=== PATIENT | female | born 1935 | race African-American/Black ===

== ENCOUNTER 2017-04-30 17:14 | Observation (INO) ==
[2017-04-30 17:59] LABS: Basophils # 0.1 10*3/uL (0.0-0.2); Basophils % 0.5 % (0.0-0.8); Eosinophils # 0.1 10*3/uL (0.0-0.87); Hematocrit 33.6 VOL% (35.7-47.0); Hemoglobin 12.1 GM/DL (12.0-16.0); Immature Granulocytes % 0.6 %; Immature Granulocytes Absolute 0.08 #; Lymphocytes # 1.4 10*3/uL (1.4-4.0); Lymphocytes % 10.1 % (21.3-54.2); Mean Corpuscular Hemoglobin 28 PG (27-34); Mean Corpuscular Volume 76.4 FL (87-102); Mean Platelet Volume 10.7 FL (9.6-12.0); Monocytes # 0.9 10*3/uL (0.11-0.8); Monocytes % 6.8 % (1.7-12.7); Neutrophils # 10.9 10*3/uL (1.4-7.4); Platelet Count 346 T/CUMM (130-400); Red Cell Distribution Width 14.1 % (9.3-17.3); White Blood Count 13.5 T/CUMM (4-12)
--- NOTE | 2017-04-30 18:07 | EKG Report ---
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
--- NOTE | 2017-04-30 18:48 | XRay Report ---
XR chest 2V Indication: Chest pain Comparison: 18 September 2012 Findings: The heart and mediastinum are normal in size and configuration. The pulmonary vascularity is normal in caliber. No lung infiltrates, effusions, pneumothorax or other abnormality is demonstrated. Impression: Normal chest x-ray PROCEDURE INTERPRETED AT [facility] DEPARTMENT OF RADIOLOGY Final Report Signed by: Dr. Emilio Govea
[2017-04-30 18:49] LABS: Blood Urea Nitrogen 35 MG/DL (7-18); Calcium 8.9 MG/DL (8.5-10.1); Glucose 111 MG/DL (74-106); Magnesium 2.3 MG/DL (1.8-2.4); Osmolality,Calculated 281.8 MOS/KG (273-304); Potassium 4.5 MMOL/L (3.5-5.1); Sodium 137 MMOL/L (136-145); Troponin I Only < 0.015 NG/ML (0.00-0.045)
--- NOTE | 2017-04-30 19:36 | Emergency Department Note ---
Jaswinder Reyna Rolonda, am scribing for, and in the presence of, Oracio Smith M.D. 18:23. Sarah Reyna Howard T, M.D., personally performed the services described in this documentation, ascribed by Irina San in my presence, and it is both accurate and complete [id number] . Arrival - Arrival Chief Complaint: Chest Pain Stated Complaint: chest flutter; esophageal spasms ED Nursing Triage Note: Misty reports a onset of chest fluttering with shortness of breath, weakness, and dizziness; she reports a history of esophageal spasms; and was last dilitated two years ago. Mode of Arrival: Stretcher Limitations: No Limitations Source: Patient, Old Records Reviewed, RN Notes Reviewed Time Seen by Provider: 04/30/17 17:36 - History of Present Illness HPI Narrative: Pt is an 81 y/o female who presents to the ED via EMS with c/o left sided chest pain with an onset of hours ago. Pt has a PMHx of HTN, DM, and Esophageal Dilation. Pt has a PSHx of Cardiac Catherization x5 years ago. She states that she believes that her chest pain is a result of having an esophageal spasms as she normally does. Pt states that she was home when she "started feeling weird. " Pt stated that she did not take NTG tablet because she did not think she was having a heart attack. She states that she began to "feel tired" and felt as if her "jaws locked up." She confirms associated sxs of light headedness, hot, and fatigue but denies vomiting and abdomen pain. Pt stated that she had no pain during time of exam. No other complaint/pain in ED. Onset (ago): hour(s) Consistency: constant Severity: moderate Severity scale (1-10): 5 Quality: other Home Medications: Home Medications Medication Instructions Recorded Confirmed Type Albuterol Sulfate [Proair HFA] 2 puff INH Q4H PRN 04/30/17 04/30/17 History Aspirin EC Tab 81 mg PO QPM 04/30/17 04/30/17 History Cyclobenzaprine [Flexeril] 10 mg PO TID 04/30/17 04/30/17 History Cyproheptadine Tab [Periactin Tab] 4 mg PO BID 04/30/17 04/30/17 History Esomeprazole Magnesium 20 mg PO DAILY 04/30/17 04/30/17 History [Esomeprazole] Fluticasone/Salmeterol 100-50 2 puff INH DAILY 04/30/17 04/30/17 History [Advair 100-50] Furosemide Tab [Lasix Tab] 40 mg PO DAILY PRN 04/30/17 04/30/17 History Insulin Detemir [Levemir FlexPen] 15 units SUBCUT BEDTIME 04/30/17 04/30/17 History Levocetirizine Dihydrochloride 5 mg PO QPM 04/30/17 04/30/17 History Lisinopril [Lisinopril] 10 mg PO DAILY 04/30/17 04/30/17 History Magnesium 250 mg PO QAM 04/30/17 04/30/17 History NIFEdipine [Nifedipine ER] 30 mg PO DAILY 04/30/17 04/30/17 History Nitroglycerin Sl Tab [Nitrostat] 0.4 mg SL Q5M PRN 04/30/17 04/30/17 History Potassium Chloride [Klor-Con M10] 10 meq PO DAILY 04/30/17 04/30/17 History Sitagliptin Phos/Metformin HCl 1 tablet PO BID 04/30/17 04/30/17 History [Janumet 50-500 mg Tablet] Tiotropium Inhalation [Spiriva 1 puff INH DAILY 04/30/17 04/30/17 History Handihaler] Tramadol HCl [Tramadol Tab] 50 mg PO Q6H PRN 04/30/17 04/30/17 History Travoprost 0.004% Oph Soln 1 drop BOTH EYES BEDTIME 04/30/17 04/30/17 History [Travatan Z] Triamterene/Hydrochlorothiazid 1 tablet PO DAILY 04/30/17 04/30/17 History [Triamterene-Hctz 37.5-25 mg Tb] glipiZIDE [Glucotrol] 10 mg PO AC BREAKFAST 04/30/17 04/30/17 History Review of System - Review of System 12 point system: reviewed and no additional remarkable complaints except as stated - Review of System Constitutional: Absent: chills (left side), fever Eyes: Absent: discharge, redness Head/Ears/Nose/Throat: Absent: earache, epistaxis Respiratory: Absent: cough Cardiovascular: Present: chest pain Gastrointestinal: Absent: abdominal pain, nausea, vomiting, diarrhea Genitourinary female: Absent: dysuria Musculoskeletal: Absent: arm pain, back pain, leg pain, neck pain Skin: Absent: rash Neurological: Present: vertigo. Absent: headache, confusion Psychiatric: Absent: anxiety, depression Endocrine: Present: fatigue Medical,Surgical,& Family Hx - Medical History Cardio: History of: Hypertension Psychological: History of: Anxiety Disorders, Depression Endocrine: History of: Diabetes Mellitus (NIDDM) Rheumatology: History of;: Fibromyalgia, Gout, Rheumatoid Arthritis Respiratory: History of: COPD Gastrointestinal: History of: GERD, GI Problems (esophageal spasms with dilitation) - Surgical History Cardiac Surgeries: Sugical HX of: Cardiac Catheterization Reproductive Surgeries: Surgical HX of;: Hysterectomy Orthopedic Surgeries: Comment Only: Total Knee Replacement (left arthroscopic surgery) - Family History Family History: Reports;: Family Cancer (sister-melanoma; father-prosate CA; maternal GM stomach cancer), Family Diabetes (sister and brother) - Social History Smoking Status: Never smoker Frequency of Alcohol Use: None Type of Drug Use: None Exam Vital Signs: Vital Signs Temperature 98.5 F 04/30/17 17:15 Pulse Rate 75 04/30/17 18:30 Respiratory Rate 16 04/30/17 18:30 Blood Pressure 113/79 04/30/17 18:30 O2 Sat by Pulse Oximetry 97 04/30/17 18:30 - General General appearance: alert, in no apparent distress - Head Head exam: Present: atraumatic, normocephalic - Eye Eye exam: Present: PERRL, EOMI - ENT ENT exam: Present: mucous membranes moist. Absent: mucous membranes dry - Neck Neck exam: Present: full ROM. Absent: tenderness - Chest Chest inspection: Present: symmetric chest wall rise. Absent: tenderness - Respiratory Respiratory exam: Present: normal lung sounds bilaterally. Absent: wheezes - Cardiovascular Cardiovascular exam: Present: regular rate, normal rhythm, normal heart sounds. Absent: bradycardia - Abdominal Exam Abdominal exam: Present: soft, normal bowel sounds. Absent: tenderness - Extremities Exam Extremities exam: Present: full ROM. Absent: tenderness - Back Exam Back exam: Present: full ROM. Absent: tenderness - Neurological Exam Neurological exam: Present: alert, oriented X3, CN II-XII intact - Psychiatric Psychiatric exam: Present: normal affect, normal mood - Skin Skin exam: Present: warm, dry, intact, normal color. Absent: rash Course Course Narrative: Medical decision making: Discussed with hospitalist for overnight admission may be symptomatic PVCs, recommend monitoring and perhaps cardiology eval. also noted elevated creatinine without a baseline reference. Results - Labs CBC & BMP: 04/30/17 17:52 04/30/17 17:52 Lab Results: I have reviewed the patients labs Labs: Laboratory Tests 04/30/17 17:52 WBC 13.5 H RBC 4.40 Hgb 12.1 Hct 33.6 L MCV 76.4 L Plt Count 346 Neut % (Auto) 81.0 H Lymph % (Auto) 10.1 L Neut # (Auto) 10.9 H [place] # (Auto) 0.9 H Laboratory Tests 04/30/17 17:52 Sodium 137 Potassium 4.5 Chloride 99 Carbon Dioxide 25 Anion Gap 17.5 H BUN 35 H Creatinine 2.30 H GFR Calculation 25 Glucose 111 H - EKG EKG results: interpreted by ERMD, sinus rhythm (occas PVCs, HR 79), normal QRS, normal ST/T, no acute changes - Diagnostic Findings Procedure: Chest x-ray: report reviewed by me (Normal chest x-ray.) Disposition Clinical Impression: Palpitations, PVCs (premature ventricular contractions), Creatinine elevation Case discussed with: patient Disposition: Still a Patient Condition: Stable Time of Disposition: 19:35
[2017-04-30 20:05] LABS: Free T4 (Free Thyroxine) 1.05 NG/DL (0.76-1.46); Thyroid Stimulating Hormone 2.5 uIU/ml (0.358-3.74)
[2017-04-30] MEDS ORDERED: FUROSEMIDE 40 MG TABLET PO PRN (20:11)
[2017-04-30 20:42] LABS: Apearance,Urine CLEAR (Clear); Bacteria,Urine Occasional /HPF (Few); Bilirubin,Urine Negative (Negative); Blood, Urine Negative (Negative); Glucose,Urine (UA) Negative (Negative); Hyaline Casts,Urine 4 /LPF (0-3); Ketones,Urine Negative (Negative); Mucus,Urine Occasional /LPF (Occasional); Nitrite,Urine Negative (Negative); Protein,Urine Negative; RBC,Urine 1 /HPF (0-4); Squamous Epithelial Cell,Urine Occasional /HPF (0-10); Urine Color Yellow (Yellow); Urine Specific Gravity 1.006 (1.001-1.035); Urine Urobilinogen < 2.0 EU/DL (0.2-1.0); WBC,Urine 1 /HPF (0-6)
[2017-04-30] MEDS ORDERED: metFORMIN 500 MG TABLET PO SCH (21:00)
--- NOTE | 2017-04-30 21:04 | Hospitalist History & Physical ---
Assessment and Plan (1) Diabetes type 2, controlled Status: Acute Assessment and plan: Patient to continue home medications, additional coverage provided with mild sliding scale insulin, Accu-Cheks q. meals before meals and at bedtime Current Visit: Yes (2) Hypertension Status: Acute Assessment and plan: Normotensive at present, continue home medications with the exception of triamterene/HCTZ Current Visit: Yes (3) Shoulder pain, left Status: Acute Assessment and plan: Left shoulder pain seems to be rotator cuff dysfunction in nature, have suggested outpatient orthopedic workup upon discharge. Current Visit: Yes (4) Creatinine elevation Status: Acute Assessment and plan: Unknown if chronic or acute elevation, gentle hydration with normal saline at 50 mL/h, repeat CBC and BMP in a.m. Current Visit: Yes (5) PVCs (premature ventricular contractions) Status: Acute Assessment and plan: PB seen seen on EKG in ED, patient has past cardiac history and has seen Dr. Rich in the past. Consult cardiology, patient n.p.o. after midnight Current Visit: Yes (6) Palpitations Status: Acute Assessment and plan: Admit to tele obs, trend cardiac enzymes 3, repeat EKG in a.m. Current Visit: Yes History of Present Illness Chief complaint: Chest pain History of present illness: Ms. Sosa is a 81 year old female Presented to the [facility] ED tonight complaining of chest pain and discomfort that progressively worsened throughout the day today. The patient states that she felt like the discomfort was due to heartburn or esophageal spasm that she has a history of, but as the day progressed she began to feel worse, including some nausea and diaphoresis. She denies radiating pain to her arm or neck. She has a significant cardiac history including cardiac cath 5 years ago where she saw Dr. Rich and was diagnosed with aortic valve stenosis. Her medical history also includes hypertension, diabetes type 2, fibromyalgia, osteoarthritis and pulmonary dysfunction. She also states that she can feel an intermittent fluttering in her heart with intermittent increased heart rate. Patient's primary care physician is Dr. Siddiqui in [facility]. Patient will be admitted to telemetry under observational status for a cardiovascular evaluation. Patient desires to be a DNI. Home Medications Medication Instructions Recorded Confirmed Type Albuterol Sulfate [Proair HFA] 2 puff INH Q4H PRN 04/30/17 04/30/17 History Aspirin EC Tab 81 mg PO QPM 04/30/17 04/30/17 History Cyclobenzaprine [Flexeril] 10 mg PO TID 04/30/17 04/30/17 History Cyproheptadine Tab [Periactin Tab] 4 mg PO BID 04/30/17 04/30/17 History Esomeprazole Magnesium 20 mg PO DAILY 04/30/17 04/30/17 History [Esomeprazole] Fluticasone/Salmeterol 100-50 2 puff INH DAILY 04/30/17 04/30/17 History [Advair 100-50] Furosemide Tab [Lasix Tab] 40 mg PO DAILY PRN 04/30/17 04/30/17 History Insulin Detemir [Levemir FlexPen] 15 units SUBCUT BEDTIME 04/30/17 04/30/17 History Levocetirizine Dihydrochloride 5 mg PO QPM 04/30/17 04/30/17 History Lisinopril [Lisinopril] 10 mg PO DAILY 04/30/17 04/30/17 History Magnesium 250 mg PO QAM 04/30/17 04/30/17 History NIFEdipine [Nifedipine ER] 30 mg PO DAILY 04/30/17 04/30/17 History Nitroglycerin Sl Tab [Nitrostat] 0.4 mg SL Q5M PRN 04/30/17 04/30/17 History Potassium Chloride [Klor-Con M10] 10 meq PO DAILY 04/30/17 04/30/17 History Sitagliptin Phos/Metformin HCl 1 tablet PO BID 04/30/17 04/30/17 History [Janumet 50-500 mg Tablet] Tiotropium Inhalation [Spiriva 1 puff INH DAILY 04/30/17 04/30/17 History Handihaler] Tramadol HCl [Tramadol Tab] 50 mg PO Q6H PRN 04/30/17 04/30/17 History Travoprost 0.004% Oph Soln 1 drop BOTH EYES BEDTIME 04/30/17 04/30/17 History [Travatan Z] Triamterene/Hydrochlorothiazid 1 tablet PO DAILY 04/30/17 04/30/17 History [Triamterene-Hctz 37.5-25 mg Tb] glipiZIDE [Glucotrol] 10 mg PO AC BREAKFAST 04/30/17 04/30/17 History Allergies Allergy/AdvReac Type Severity Reaction Status Date / Time codeine Allergy Verified 04/30/17 20:13 quinine Allergy Verified 04/30/17 20:13 aspirin AdvReac Verified 04/30/17 20:13 Medical,Surgical,& Family Hx - Medical History Cardio: History of: Hypertension Psychological: History of: Anxiety Disorders, Depression Endocrine: History of: Diabetes Mellitus (NIDDM) Rheumatology: History of;: Fibromyalgia, Gout, Rheumatoid Arthritis Respiratory: History of: COPD Gastrointestinal: History of: GERD, GI Problems (esophageal spasms with dilitation) - Surgical History Cardiac Surgeries: Sugical HX of: Cardiac Catheterization Reproductive Surgeries: Surgical HX of;: Hysterectomy Orthopedic Surgeries: Comment Only: Total Knee Replacement (left arthroscopic surgery) - Family History Family History: Reports;: Family Cancer (sister-melanoma; father-prosate CA; maternal GM stomach cancer), Family Diabetes (sister and brother) - Social History Smoking Status: Never smoker Frequency of Alcohol Use: None Type of Drug Use: None 12 point system: reviewed and no additional remarkable complaints except as stated - Constitutional Constitutional: Present: as per HPI - Cardiovascular Cardiovascular: Present: chest pain at rest - Respiratory Respiratory: Present: wheezing - Gastrointestinal Gastrointestinal: Present: heartburn, nausea - Musculoskeletal Musculoskeletal: Present: other (Right shoulder pain, rotator cuff) Exam - Constitutional Vitals: Period Temp Pulse Resp BP Sys/Knight Pulse Ox Last 24 Hr 98.5 F-98.5 F 67-81 16-24 113-129/61-79 97-100 General appearance: normal weight, no acute distress - Head Head exam: Present: normal inspection, normocephalic, atraumatic - Eye Eye exam: Present: EOMI Pupils: Present: DEYA - Respiratory Respiratory exam: Present: wheezes (Wheezing throughout the lung rios.) - Cardiovascular Cardiovascular exam: Present: regular rate and rhythm (Did not hear aortic valve stenosis that she has a history of upon exam.) - GI/Abdominal GI/Abdominal exam: Present: normal bowel sounds, soft - Extremities Exam Extremities exam: Present: edema (Trace edema, left worse than right.) - Expanded Left Upper Extremity Shoulder exam: Present: pain, tenderness over AC joint (And tenderness over the tibia acromion.), tenderness - Neurological Exam Neurological exam: Present: alert, oriented X3 - Psychiatric Psychiatric exam: Present: normal affect, normal mood - Skin Skin exam: Present: normal color, warm Results - Labs CBC & BMP: 04/30/17 17:52 04/30/17 17:52 Lab Results: I have reviewed the past 24 hour labs - EKG EKG results: sinus rhythm (With PVCs)
[2017-04-30] MEDS ORDERED: DEXTROSE 50% 25 GM/50 ML VIAL IV PRN (22:27)
[2017-04-30] MEDS ORDERED: GLUCAGON 1 MG VIAL IM PRN (22:27)
[2017-04-30] MEDS: sitaGLIPtin 25 MG TABLET PO SCH (23:21)
[2017-04-30] MEDS: CYCLOBENZAPRINE 10 MG TABLET PO SCH (23:21)
[2017-04-30] MEDS: TRAVOPROST 0.004% OPH SOLN 2.5 ML BOTTLE BOTH EYES SCH (23:22)
[2017-04-30] MEDS: SODIUM CHLORIDE 0.9% 1,000 ML IV SCH (23:22)
[2017-05-01] MEDS: ALBUTEROL/IPRATROPIUM 3 ML NEB RESP TX SCH ×6 (00:03→19:42)
[2017-05-01 04:43] LABS: Basophils # 0.1 10*3/uL (0.0-0.2); Basophils % 0.4 % (0.0-0.8); Eosinophils # 0.3 10*3/uL (0.0-0.87); Eosinophils % 2.5 % (0.00-10.9); Hematocrit 31.6 VOL% (35.7-47.0); Hemoglobin 10.9 GM/DL (12.0-16.0); Immature Granulocytes % 0.4 %; Immature Granulocytes Absolute 0.04 #; Lymphocytes # 2.4 10*3/uL (1.4-4.0); Lymphocytes % 20.8 % (21.3-54.2); Mean Corpuscular HGB Conc 34.5 GM/DL (32-36); Mean Corpuscular Hemoglobin 27 PG (27-34); Mean Corpuscular Volume 77.5 FL (87-102); Mean Platelet Volume 11.4 FL (9.6-12.0); Monocytes # 0.8 10*3/uL (0.11-0.8); Monocytes % 6.9 % (1.7-12.7); Neutrophils # 7.8 10*3/uL (1.4-7.4); Platelet Count 311 T/CUMM (130-400); Red Blood Count 4.08 MC/CUMM (3.8-5.5); Red Cell Distribution Width 14.2 % (9.3-17.3); White Blood Count 11.3 T/CUMM (4-12)
[2017-05-01 05:27] LABS: Calcium 8.9 MG/DL (8.5-10.1); Osmolality,Calculated 285.5 MOS/KG (273-304); Potassium 4.2 MMOL/L (3.5-5.1)
[2017-05-01 05:30] LABS: Troponin I Only < 0.015 NG/ML (0.00-0.045)
--- NOTE | 2017-05-01 08:08 | EKG Report ---
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
[2017-05-01] MEDS ORDERED: traMADol 50 MG TABLET PO PRN (08:26)
[2017-05-01] MEDS ORDERED: PANTOPRAZOLE 40 MG TABLET PO SCH (09:00)
[2017-05-01] MEDS ORDERED: ALBUTEROL 2.5 MG/3 ML NEB RESP TX PRN (09:00)
[2017-05-01] MEDS ORDERED: PANTOPRAZOLE 40 MG VIAL IV SCH (09:00)
[2017-05-01] MEDS ORDERED: NON-FORMULARY MEDICATION (Tiotropium Inhalation 1 PUFF) INH SCH (09:00)
[2017-05-01] MEDS: LISINOPRIL 10 MG TABLET PO SCH (09:34)
[2017-05-01] MEDS: POTASSIUM CHLORIDE 10 MEQ TABLET PO SCH (09:34)
[2017-05-01] MEDS: CYCLOBENZAPRINE 10 MG TABLET PO SCH ×3 (09:35→22:10)
[2017-05-01] MEDS: glipiZIDE 10 MG TABLET PO SCH (09:36)
[2017-05-01] MEDS: sitaGLIPtin 25 MG TABLET PO SCH ×2 (09:36→22:10)
[2017-05-01] MEDS: GABAPENTIN 300 MG CAPSULE PO SCH ×2 (09:42→22:11)
[2017-05-01] MEDS: MAGNESIUM OXIDE 400 MG TABLET PO SCH (09:42)
[2017-05-01] MEDS: FLUTICASONE/SALMETEROL 100-50 DISKUS 14 DOSE INH SCH (09:42)
--- NOTE | 2017-05-01 10:05 | Hospitalist Progress Note ---
Assessment and Plan (1) History of esophageal stricture Status: Acute Assessment and plan: Consult GI for possible endoscopy and evaluation of esophagus. The patient feels like she is having esophageal spasm causing her chest pain. Current Visit: Yes (2) Acute kidney injury Status: Acute Assessment and plan: Improved with IV fluids. Hold diuretics. Current Visit: Yes (3) Diabetes type 2, controlled Status: Chronic Current Visit: Yes (4) Hypertension Status: Chronic Current Visit: Yes Qualifiers: Hypertension type: essential hypertension Qualified Code(s): I10 - Essential (primary) hypertension (5) Shoulder pain, left Status: Chronic Assessment and plan: Follow-up with orthopedics as an outpatient Current Visit: Yes Qualifiers: Chronicity: chronic Qualified Code(s): M25.512 - Pain in left shoulder; G89.29 - Other chronic pain Hospitalist: Subjective Interval history: Patient seen and examined. No acute events overnight. Case discussed with nursing staff. Labs reviewed. The patient reports a history of esophageal stricture and dilatation 3-4 years ago. She also complains of esophageal spasm. Cardiac enzymes have been negative. I will consult GI for further evaluation and possible EGD. Exam - Constitutional Vitals: Period Temp Pulse Resp BP Sys/Knight Pulse Ox Last 24 Hr 96.6 F-98.5 F 55-81 16-24 113-136/55-79 94-100 Exam: Constitutional System: no distress. No tremulousness. Head: Normocephalic, atraumatic. Ears, Nose and Throat System: No pain or tenderness. No epistaxis or discharge Eyes System: Pupils equal, round, and reactive. Extraocular muscles intact. Neck: Supple, without adenopathy, No jugular venous distention. Respiratory System: Chest clear to auscultation. Cardiovascular System: Heart with regular rate and rhythm. No murmur. GI System: Abdomen soft, nontender. Normo active bowel sounds present. Musculoskeletal System: limbs with no pedal edema. Full distal pulses. Neurological System: No discernable sensory deficit. No aphasia Psychiatric System: Conversation is rational Results - Labs CBC & BMP: 05/01/17 03:35 05/01/17 03:35 Lab Results: I have reviewed the past 24 hour labs Quality Measures - Stroke Symptom Onset Unknown: No
[2017-05-01] MEDS: CYPROHEPTADINE 4 MG TABLET PO SCH ×2 (12:10→16:47)
--- NOTE | 2017-05-01 12:47 | Gastrointestinal Consult Note ---
Assessment and Plan (1) Atypical chest pain Status: Acute Assessment and plan: This patient has a history of atypical chest pain going back to 2011 when she had seen Dr[address] Potter for dilation. She has low-grade anemia and guaiac positivity to her stools and will check and see if there is any evidence of esophagitis or Ugarte's and look for Helicobacter pylori as a do not believe she is been biopsied previously. She will be getting a on esophageal swallow tomorrow to see if there is gross evidence of stricturing or if there is simply spasm. We will likely follows up with a upper endoscopy and dilation on Wednesday , 05/03/17. Risks of the above procedure were reviewed with the patient and include but are not limited to: Bleeding, infection, perforation, cardiac and pulmonary compromise. Current Visit: Yes (2) Dysphagia, pharyngoesophageal Status: Acute Assessment and plan: This is part of the reason why the patient has come to [place]. This pain does not feel like chest irritation associated with her valvular heart disease. Again the plan is as mentioned a barium swallow tomorrow morning followed by a endoscopy with dilation the following day. Given the findings on the last 2 endoscopies I suspect she will have a motility disorder that should be better seen by barium swallow. Current Visit: Yes (3) Guaiac positive stools Status: Acute Assessment and plan: Patient does have anemia and guaiac positive stools. This may be secondary to upper GI phenomenon but if nothing is found on endoscopy on Wednesday we will likely do a colonoscopy as an outpatient to look for a source. Currently the patient's hematocrit is 31.6 %. Current Visit: Yes (4) Microcytic anemia Status: Acute Assessment and plan: As mentioned above, we are trying to find a source for the patient's underlying anemia. Upper endoscopy on 05/03/17 Current Visit: Yes History of Present Illness Chief complaint: Atypical chest pain and dysphagia History of present illness: Ms. Sosa is a 81 year old female who has a long-standing history of esophageal spasm/dysphagia for which she has seen Dr. Potter in the past. Her primary care provider is Dr. Anjana Siddiqui in in [place], [place]. Dr. Potter did perform dilation most recently on 09/18/12 at which time she was not found any gross stricture but rather a hiatal hernia was thought to have esophageal spasm. He dilated her to 52 Romanian by single pass Golden and this was being done for atypical chest pain as well he did not see any gross esophagitis but did see some antritis which he did not biopsy. The patient presents at this time with atypical chest pain again. She does follow with Dr. Rich for her aortic valve stenosis. But she feels like this may be due to heartburn or esophageal spasm. She feels that her food gets stuck in the lower esophagus and that she simply has to drink a great deal of water to get this to run past. She does not have any significant bloating or epigastric tenderness. She does take Nexium but only half dose (20 mg) and does take aspirin on a daily basis. She is being watched today and we are going to get a barium swallow tomorrow to look for esophageal spasm. Will likely follow this with an esophageal dilation, come Wednesday. She has not been having any black tarry bowel movements of bright red blood per rectum. She denies typical diarrhea and constipation. Her appetite has been good and she has not had any hematemesis, fevers or chills. She states that she has had a colonoscopy done "many years ago". Home Medications Medication Instructions Recorded Confirmed Type Albuterol Sulfate [Proair HFA] 2 puff INH Q4H PRN 04/30/17 04/30/17 History Aspirin EC Tab 81 mg PO QPM 04/30/17 04/30/17 History Cyclobenzaprine [Flexeril] 10 mg PO TID 04/30/17 04/30/17 History Cyproheptadine Tab [Periactin Tab] 4 mg PO TID W/MEALS 04/30/17 04/30/17 History Esomeprazole Magnesium 20 mg PO DAILY 04/30/17 04/30/17 History [Esomeprazole] Fluticasone/Salmeterol 100-50 2 puff INH DAILY 04/30/17 04/30/17 History [Advair 100-50] Furosemide Tab [Lasix Tab] 40 mg PO DAILY PRN 04/30/17 04/30/17 History Gabapentin 300 mg PO BID 04/30/17 04/30/17 History Insulin Detemir [Levemir FlexPen] 15 units SUBCUT BEDTIME 04/30/17 04/30/17 History Levocetirizine Dihydrochloride 5 mg PO QPM 04/30/17 04/30/17 History Lisinopril [Lisinopril] 10 mg PO DAILY 04/30/17 04/30/17 History Magnesium 250 mg PO QAM 04/30/17 04/30/17 History NIFEdipine [Nifedipine ER] 30 mg PO DAILY 04/30/17 04/30/17 History Nitroglycerin Sl Tab [Nitrostat] 0.4 mg SL Q5M PRN 04/30/17 04/30/17 History Potassium Chloride [Klor-Con M10] 10 meq PO DAILY 04/30/17 04/30/17 History Sitagliptin Phos/Metformin HCl 1 tablet PO BID 04/30/17 04/30/17 History [Janumet 50-500 mg Tablet] Tiotropium Inhalation [Spiriva 1 puff INH DAILY 04/30/17 04/30/17 History Handihaler] Tramadol HCl [Tramadol Tab] 50 mg PO Q6H PRN 04/30/17 04/30/17 History Travoprost 0.004% Oph Soln 1 drop BOTH EYES BEDTIME 04/30/17 04/30/17 History [Travatan Z] Triamterene/Hydrochlorothiazid 1 tablet PO DAILY 04/30/17 04/30/17 History [Triamterene-Hctz 37.5-25 mg Tb] glipiZIDE [Glucotrol] 10 mg PO AC BREAKFAST 04/30/17 04/30/17 History Allergies Allergy/AdvReac Type Severity Reaction Status Date / Time codeine Allergy Verified 04/30/17 20:13 quinine Allergy Verified 04/30/17 20:13 aspirin AdvReac Verified 04/30/17 20:13 Medical,Surgical,& Family Hx - Medical History Cardio: History of: Hypertension Psychological: History of: Anxiety Disorders, Depression Endocrine: History of: Diabetes Mellitus (NIDDM) Rheumatology: History of;: Fibromyalgia, Gout, Rheumatoid Arthritis Respiratory: History of: COPD Gastrointestinal: History of: GERD, GI Problems (esophageal spasms with dilitation) Musculoskeletal: No history of: Amputation - Surgical History Cardiac Surgeries: Sugical HX of: Cardiac Catheterization Thoracic Surgeries: Patient denies;: Lobectomy Neurologic Surgeries: Patient denies: Neurologic Surgery HEENT Surgeries: Patient denies: Eye Surgery, Tonsilectomy & Adenoidectomy Abdominal Surgeries: Patient denies: Abdominal Surgery Reproductive Surgeries: Surgical HX of;: Hysterectomy Patient denies;: Genitourinary Surgery Orthopedic Surgeries: Comment Only: Total Knee Replacement (left arthroscopic surgery) - Family History Family History: Reports;: Family Cancer (sister-melanoma; father-prosate CA; maternal GM stomach cancer), Family Diabetes (sister and brother) - Social History Smoking Status: Never smoker Frequency of Alcohol Use: None Type of Drug Use: None Review of systems: Constitutional: Denies fever, chills, and vomiting, she does admit to some nausea. Eyes: Denies dry eyes, and scleral icterus HENT: Denies headaches Cardiovascular: Patient is having some acute chest pain but now and claudication Respiratory: Denies shortness of breath, wheezing, and difficulty breathing, denies cough Gastrointestinal: As noted in the HPI Genitourinary: Denies dysuria and hematuria Neurologic: Denies vision loss, and loss of sensation Musculoskeletal: She does admit to some joint swelling, joint stiffness, and muscular weakness Psychiatric: Denies depression and sandra symptoms Heme-Lymph: Denies easy bruising, lymph node enlargement or tenderness, night sweats, excessive bleeding Allergies-immunologic: Denies pruritus and rhinorrhea Exam - Constitutional Vitals: Period Temp Pulse Resp BP Sys/Knight Pulse Ox Last 24 Hr 96.6 F-98.5 F 55-81 16-24 113-136/55-79 94-100 Exam: Constitutional: Well-developed, well-nourished, alert, and in no acute distress Head and face: Head: Normocephalic atraumatic Eyes: Conjunctiva without injection, no gross scleral icterus, pupils equal and round bilaterally Ears: Intact to conversation in both ears Nose: External appearance is normal, nares patent Mouth: Oral mucous membranes moist without erythema dentition noted to be without erosion Neck: Normal appearance, no masses or tenderness, trachea midline Thyroid: Gland midline and appropriate size for age Respiratory: Normal respiratory effort, clear to auscultation without wheezes, rhonchi or rales Cardiovascular: Regular rate and rhythm, normal S1, S2, the exam is without rubs, murmurs or gallops. Gastrointestinal: Nontender to palpation, normal active bowel sounds, tone normal without rigidity or guarding, no masses present, no hepatomegaly, no spleen tip felt. Rectal exam showed small internal hemorrhoids stool is present brown and guaiac positive Lymphatic: Neck without adenopathy, axilla without lymphadenopathy present Musculoskeletal: Right and left lower extremities without evidence of edema Skin and subcutaneous tissue: No rashes or ulcerations noted, normal skin turgor, digits and nails without clubbing/cyanosis/deformities. Neurologic: The patient is grossly oriented to person place and time, cranial nerves show tongue movements are normal with normal tongue extrusion midline, light touch sensation is intact. Psychiatric: No hallucinations or delusions are present, does not appear depressed Results - Labs CBC & BMP: 05/01/17 03:35 05/01/17 03:35 Quality Measures - Stroke Symptom Onset Unknown: No
[2017-05-01] MEDS: SODIUM CHLORIDE 0.9% 1,000 ML IV SCH (18:08)
[2017-05-01] MEDS: PANTOPRAZOLE 40 MG TABLET PO SCH (18:09)
[2017-05-01] MEDS: INSULIN GLARGINE 100 UNIT/ML SUBCUT SCH (22:10)
[2017-05-01] MEDS: TRAVOPROST 0.004% OPH SOLN 2.5 ML BOTTLE BOTH EYES SCH (22:11)
[2017-05-02] MEDS: ALBUTEROL/IPRATROPIUM 3 ML NEB RESP TX SCH ×6 (01:53→20:46)
[2017-05-02] MEDS: PANTOPRAZOLE 40 MG TABLET PO SCH ×2 (06:31→17:07)
[2017-05-02] MEDS: POTASSIUM CHLORIDE 10 MEQ TABLET PO SCH (11:08)
[2017-05-02] MEDS: LISINOPRIL 10 MG TABLET PO SCH (11:09)
[2017-05-02] MEDS: sitaGLIPtin 25 MG TABLET PO SCH ×2 (11:09→20:34)
[2017-05-02] MEDS: GABAPENTIN 300 MG CAPSULE PO SCH ×2 (11:09→20:36)
[2017-05-02] MEDS: glipiZIDE 10 MG TABLET PO SCH (11:10)
[2017-05-02] MEDS: CYPROHEPTADINE 4 MG TABLET PO SCH ×3 (11:10→17:07)
[2017-05-02] MEDS: MAGNESIUM OXIDE 400 MG TABLET PO SCH (11:11)
[2017-05-02] MEDS: CYCLOBENZAPRINE 10 MG TABLET PO SCH ×3 (11:11→20:35)
[2017-05-02] MEDS: FLUTICASONE/SALMETEROL 100-50 DISKUS 14 DOSE INH SCH (11:13)
--- NOTE | 2017-05-02 11:29 | Fluoroscopy Report ---
Exam: [place] barium swallow Date: 05/02/2017 4:00 AM Comparison: None Indication: Dysphagia with history of prior esophageal dilatation Technique:[Multiple spot and overhead films obtained. Fluoroscopy time of 5.05 minutes documented. 42 images obtained.] Films were obtained with fluoroscopy grab technique to decrease radiation dose. Findings: The patient swallowed barium without difficulty. Indentation on the cervical esophagus by the cricopharyngeus muscle. Small sliding-type hiatal hernia with intermittent contraction ring in the lower esophagus. Intermittent somewhat prominent tertiary contractions of the esophagus. The patient was given 2 barium tablets which lodged in the mid thoracic location near the level of the aortic arch at the time of fluoroscopy. However the tablets passed into the stomach on the 15 minute delayed film. No evidence of significant gastroesophageal reflux or high-grade stricture. Degenerative changes are noted. Impression: Indentation on the cervical esophagus by the cricopharyngeus muscle. Small sliding-type hiatal hernia with intermittent contraction ring of the lower esophagus. Tertiary contractions of the esophagus with delayed emptying of the esophagus as documented by lodging of 2 barium tablets in the mid esophageal location. No obvious mass or high-grade stricture identified. However if symptoms persist, endoscopy or esophageal motility studies may be helpful for further evaluation of these findings. PROCEDURE INTERPRETED AT [facility] DEPARTMENT OF RADIOLOGY Final Report Signed by: Dr. Skylar Miranda
--- NOTE | 2017-05-02 13:23 | Gastrointestinal Progress Note ---
Assessment and Plan (1) Atypical chest pain Status: Acute Assessment and plan: This patient has a history of atypical chest pain going back to 2011 when she had seen Dr. Potter for dilation. She has low-grade anemia and guaiac positivity to her stools and will check and see if there is any evidence of esophagitis or Ugarte's and look for Helicobacter pylori as a do not believe she is been biopsied previously. She will be getting a on esophageal swallow tomorrow to see if there is gross evidence of stricturing or if there is simply spasm. We will likely follows up with a upper endoscopy and dilation on Wednesday , 05/03/17. Risks of the above procedure were reviewed with the patient and include but are not limited to: Bleeding, infection, perforation, cardiac and pulmonary compromise. 05/02/17--We Will be searching for the cause for the patient's GI bleeding during dilation and EGD tomorrow. The patient's hematocrit has been stable she is eating well but food is still getting stuck in her midesophagus. The barium swallow done demonstrates the pills do hang up in the midesophagus. Current Visit: Yes (2) Dysphagia, pharyngoesophageal Status: Acute Assessment and plan: This is part of the reason why the patient has come to [place]. This pain does not feel like chest irritation associated with her valvular heart disease. Again the plan is as mentioned a barium swallow tomorrow morning followed by a endoscopy with dilation the following day. Given the findings on the last 2 endoscopies I suspect she will have a motility disorder that should be better seen by barium swallow. 05/02/17--as mentioned above. Current Visit: Yes (3) Guaiac positive stools Status: Acute Assessment and plan: Patient does have anemia and guaiac positive stools. This may be secondary to upper GI phenomenon but if nothing is found on endoscopy on Wednesday we will likely do a colonoscopy as an outpatient to look for a source. Currently the patient's hematocrit is 31.6 %. 05/02/17--We will recheck the CBC tomorrow to make sure this is not changed significantly. Current Visit: Yes (4) Microcytic anemia Status: Acute Assessment and plan: As mentioned above, we are trying to find a source for the patient's underlying anemia. Upper endoscopy on 05/03/17 Current Visit: Yes Gastroenterology - PN: Subj Interval history: Patient is doing well today, she did get the barium pill stuck while doing her barium swallow, this appeared to occur most severely in the mid esophagus. She is due to undergo upper endoscopy tomorrow. She is eating adequately. Exam (Progress Note) - Constitutional Vitals: Period Temp Pulse Resp BP Sys/Knight Pulse Ox Last 24 Hr 96.9 F-98.2 F 62-73 16-18 119-141/56-67 90-100 General appearance: no acute distress - Head Head exam: Present: normocephalic, atraumatic - Eye Eye exam: Present: EOMI Pupils: Present: DEYA - Respiratory Respiratory exam: Present: clear to auscultation bilaterally. Absent: rhonchi, stridor, wheezes - Cardiovascular Cardiovascular exam: Present: regular rate and rhythm - GI/Abdominal GI/Abdominal exam: Present: normal bowel sounds, soft. Absent: ascites, distended, tenderness, rebound - Extremities Exam Extremities exam: Absent: edema - Neurological Exam Neurological exam: Present: alert, oriented X3. Absent: altered - Psychiatric Psychiatric exam: Present: normal affect, normal mood - Skin Skin exam: Present: warm Results - Labs CBC & BMP: 05/01/17 03:35 05/01/17 03:35
--- NOTE | 2017-05-02 14:28 | Hospitalist Progress Note ---
Assessment and Plan (1) History of esophageal stricture Status: Acute Assessment and plan: GI consult reviewed. Awaiting endoscopy and evaluation of esophagus scheduled for tomorrow morning. The patient feels like she is having esophageal spasm causing her chest pain. Current Visit: Yes (2) Acute kidney injury Status: Acute Assessment and plan: Improved with IV fluids. Hold diuretics. Repeat BMP in a.m. Current Visit: Yes (3) Diabetes type 2, controlled Status: Chronic Current Visit: Yes (4) Hypertension Status: Chronic Current Visit: Yes Qualifiers: Hypertension type: essential hypertension Qualified Code(s): I10 - Essential (primary) hypertension (5) Shoulder pain, left Status: Chronic Assessment and plan: Follow-up with orthopedics as an outpatient. X-ray without acute fracture Or dislocation. Current Visit: Yes Qualifiers: Chronicity: chronic Qualified Code(s): M25.512 - Pain in left shoulder; G89.29 - Other chronic pain Hospitalist: Subjective Interval history: Patient seen and examined. No acute events overnight. Case discussed with nursing staff. Labs reviewed. Awaiting EGD tomorrow by Dr. Jordan. Follow-up barium swallow. Exam - Constitutional Vitals: Period Temp Pulse Resp BP Sys/Knight Pulse Ox Last 24 Hr 96.9 F-98.2 F 62-73 16-18 119-141/56-67 90-100 Exam: Constitutional System: no distress. No tremulousness. Head: Normocephalic, atraumatic. Ears, Nose and Throat System: No pain or tenderness. No epistaxis or discharge Eyes System: Pupils equal, round, and reactive. Extraocular muscles intact. Neck: Supple, without adenopathy, No jugular venous distention. Respiratory System: Chest clear to auscultation. Cardiovascular System: Heart with regular rate and rhythm. No murmur. GI System: Abdomen soft, nontender. Normo active bowel sounds present. Musculoskeletal System: limbs with no pedal edema. Full distal pulses. Neurological System: No discernable sensory deficit. No aphasia Psychiatric System: Conversation is rational Results - Labs CBC & BMP: 05/01/17 03:35 05/01/17 03:35 Lab Results: I have reviewed the past 24 hour labs Quality Measures - Stroke Symptom Onset Unknown: No
[2017-05-02] MEDS: SODIUM CHLORIDE 0.9% 1,000 ML IV SCH (15:00)
[2017-05-02] MEDS: INSULIN GLARGINE 100 UNIT/ML SUBCUT SCH (20:34)
[2017-05-02] MEDS: TRAVOPROST 0.004% OPH SOLN 2.5 ML BOTTLE BOTH EYES SCH (21:40)
[2017-05-03] MEDS: ALBUTEROL/IPRATROPIUM 3 ML NEB RESP TX SCH ×6 (00:07→19:32)
[2017-05-03 05:56] LABS: Basophils # 0.1 10*3/uL (0.0-0.2); Basophils % 0.5 % (0.0-0.8); Eosinophils # 0.3 10*3/uL (0.0-0.87); Eosinophils % 2.9 % (0.00-10.9); Hematocrit 33.1 VOL% (35.7-47.0); Hemoglobin 11.3 GM/DL (12.0-16.0); Immature Granulocytes % 0.3 %; Immature Granulocytes Absolute 0.04 #; Lymphocytes # 1.5 10*3/uL (1.4-4.0); Lymphocytes % 12.5 % (21.3-54.2); Mean Corpuscular HGB Conc 34.1 GM/DL (32-36); Mean Corpuscular Hemoglobin 27 PG (27-34); Mean Corpuscular Volume 78.3 FL (87-102); Mean Platelet Volume 10.8 FL (9.6-12.0); Monocytes # 0.7 10*3/uL (0.11-0.8); Monocytes % 5.6 % (1.7-12.7); Neutrophils % 78.2 % (38.7-73.9); Platelet Count 309 T/CUMM (130-400); Red Blood Count 4.23 MC/CUMM (3.8-5.5); Red Cell Distribution Width 14.3 % (9.3-17.3); White Blood Count 11.6 T/CUMM (4-12)
[2017-05-03 06:19] LABS: Magnesium 1.7 MG/DL (1.8-2.4); Osmolality,Calculated 287.3 MOS/KG (273-304)
[2017-05-03] MEDS: CYPROHEPTADINE 4 MG TABLET PO SCH ×3 (09:00→16:48)
[2017-05-03] MEDS: POTASSIUM CHLORIDE 10 MEQ TABLET PO SCH (09:00)
[2017-05-03] MEDS: CYCLOBENZAPRINE 10 MG TABLET PO SCH ×3 (09:00→20:05)
[2017-05-03] MEDS: PANTOPRAZOLE 40 MG TABLET PO SCH ×3 (09:00→20:05)
[2017-05-03] MEDS: MAGNESIUM OXIDE 400 MG TABLET PO SCH (09:00)
[2017-05-03] MEDS ORDERED: PROPOFOL 200 MG/20 ML VIAL IV ONE (09:05)
[2017-05-03] MEDS ORDERED: LIDOCAINE 2% 5 ML VIAL ONE (09:05)
--- NOTE | 2017-05-03 09:08 | Operative Note ---
Date of procedure: 05/03/17 Pre-op diagnosis: Dysphagia, anemia with hematocrit of 33%, atypical chest pain Post-op diagnosis: other (Patient does not have any gross evidence of stricturing but he did have a tortuous esophagus I suspect an esophageal motility disorder. We will see how she responds to dilation to 57 Lebanese by single pass Savary dilator. There was moderate amount of resistance on the dilation but no heme. Patient does have some mild erythema in the stomach, but no michele erosions or ulcerations. The duodenum was biopsied for celiac sprue given the anemia.) Procedure: PROCEDURE: Esophagogastroduodenoscopy (EGD) with cold biopsy for pathology and dilation to 57 Lebanese by single pass Savary dilator. REFERRING PHYSICIAN: Steve Burnett MD INDICATIONS: Dysphagia, atypical chest pain, anemia with hematocrit down to 33%. The prior H&P was reviewed and interrim changes are as noted: No change from GI consultation. 2 Days ago ENDOSCOPIST: Lamin Jordan MD ENDOSCOPE: [employer] Video 100 System upper endoscope ASA CLASS: 3 EXAM: CV: regular rate and rhythm respiratory: Clear without wheezes abdominal: active bowel sounds MEDICATION: Per nursing anesthesia protocol, see their notes PROCEDURE: After discussion of the potential risks and benefits of upper endoscopy, the informed consent was obtained. The patient was then placed in the left lateral decubitus position where sedation was achieved as noted above. Esophageal intubation was performed without difficulty, and the endoscope was advanced through the esophagus, stomach and duodenum. A slow withdrawal was then performed with retroflexion in the stomach for careful inspection of the incisura angularis, fundus and cardia. The scope was then returned to a neutral position and withdrawn through the esophagus. The patient tolerated the procedure well and without complication. BIOPSIES: Gastric antrum/body PHOTOGRAPHS: Obtained FINDINGS: Hypopharynx and Larynx: Normal Esohagoscopy Upper and middle thirds: Tortuous but otherwise normal Lower third tortuous but otherwise normal Esophogastric junctions: No gross evidence of Ugarte's esophagus, esophagitis, or stricturing. This area was dilated to 57 Lebanese by single pass Savary dilator at the end of the case. There was moderate amount of resistance and no heme Gastroscopy: Cardia/Fundus: Normal Body: Mild erythema, biopsied otherwise normal Antrum and pylorus mild erythema, biopsied otherwise normal Duodenoscopy: Bulb normal, biopsied for sprue Second and third portions: Normal, biopsied for sprue IMPRESSION: Patient does not have any gross evidence of stricturing but he did have a tortuous esophagus I suspect an esophageal motility disorder. We will see how she responds to dilation to 57 Lebanese by single pass Savary dilator. There was moderate amount of resistance on the dilation but no heme. Patient does have some mild erythema in the stomach, but no michele erosions or ulcerations. The duodenum was biopsied for celiac sprue given the anemia. RECOMMENDATIONS: Follow up for biopsy results in 1-2 weeks by phone [phone] Continue anti-gastroesophageal reflux measures (avoid carbonated and acidic beverages, avoid eating within 2 hours of bedtime, avoid tight fitting clothing , and elevate the front bed posts 6 inches prior to sleeping. Lamin Jordan MD COPY TO: Steve Burnett MD Anesthesia: MAC Surgeon / Physician: Lamin Jordan Estimated blood loss: minimal Specimens: other (Gastric antrum/body, duodenum) Condition: stable Disposition: post procedure unit (G[facility]I. Suite) Results - Labs CBC & BMP: 05/03/17 05:15 05/03/17 05:15 Discharge Plan - Discharge Medications No Action Sitagliptin Phos/Metformin HCl [Janumet 50-500 mg Tablet] 1 tablet PO BID Levocetirizine Dihydrochloride 5 mg PO QPM Fluticasone/Salmeterol 100-50 [Advair 100-50] 2 puff INH DAILY Cyproheptadine Tab [Periactin Tab] 4 mg PO TID W/MEALS NIFEdipine [Nifedipine ER] 30 mg PO DAILY Lisinopril [Lisinopril] 10 mg PO DAILY Cyclobenzaprine [Flexeril] 10 mg PO TID Tramadol HCl [Tramadol Tab] 50 mg PO Q6H PRN PRN Reason: Pain Furosemide Tab [Lasix Tab] 40 mg PO DAILY PRN PRN Reason: Edema Potassium Chloride [Klor-Con M10] 10 meq PO DAILY glipiZIDE [Glucotrol] 10 mg PO AC BREAKFAST Albuterol Sulfate [Proair HFA] 2 puff INH Q4H PRN PRN Reason: Shortness Of Breath/Wheezing Magnesium 250 mg PO QAM Gabapentin 300 mg PO BID Travoprost 0.004% Oph Soln [Travatan Z] 1 drop BOTH EYES BEDTIME Triamterene/Hydrochlorothiazid [Triamterene-Hctz 37.5-25 mg Tb] 1 tablet PO DAILY Tiotropium Inhalation [Spiriva Handihaler] 1 puff INH DAILY Insulin Detemir [Levemir FlexPen] 15 units SUBCUT BEDTIME Esomeprazole Magnesium [Esomeprazole] 20 mg PO DAILY Nitroglycerin Sl Tab [Nitrostat] 0.4 mg SL Q5M PRN PRN Reason: Chest Pain Aspirin EC Tab 81 mg PO QPM - Follow Up or Referral - Forms/Instructions
--- NOTE | 2017-05-03 09:16 | Gastrointestinal Progress Note ---
Assessment and Plan (1) Atypical chest pain Status: Acute Assessment and plan: This patient has a history of atypical chest pain going back to 2011 when she had [address] Dr[address] Potter for dilation. She has low-grade anemia and guaiac positivity to her stools and will check and see if there is any evidence of esophagitis or Ugarte's and look for Helicobacter pylori as a do not believe she is been biopsied previously. She will be getting a on esophageal swallow tomorrow to see if there is gross evidence of stricturing or if there is simply spasm. We will likely follows up with a upper endoscopy and dilation on Wednesday , 05/03/17. Risks of the above procedure were reviewed with the patient and include but are not limited to: Bleeding, infection, perforation, cardiac and pulmonary compromise. 05/02/17--We Will be searching for the cause for the patient's GI bleeding during dilation and EGD tomorrow. The patient's hematocrit has been stable she is eating well but food is still getting stuck in her midesophagus. The barium swallow done demonstrates the pills do hang up in the midesophagus. 05/03/17--no gross evidence of esophageal stricturing on EGD today--04/23/17. There was mild diffuse gastritis in the stomach without gross evidence of a bleeding source, duodenum appeared normal but was biopsied also for sprue. She was dilated ultimately to 57 [place] with some resistance and no heme, will see how she responds to that. Current Visit: Yes (2) Dysphagia, pharyngoesophageal Status: Acute Assessment and plan: This is part of the reason why the patient has come to [facility]. This pain does not feel like chest irritation associated with her valvular heart disease. Again the plan is as mentioned a barium swallow tomorrow morning followed by a endoscopy with dilation the following day. Given the findings on the last 2 endoscopies I suspect she will have a motility disorder that should be better seen by barium swallow. 05/02/17--as mentioned above. 05/03/17--as noted above Current Visit: Yes (3) Guaiac positive stools Status: Acute Assessment and plan: Patient does have anemia and guaiac positive stools. This may be secondary to upper GI phenomenon but if nothing is found on endoscopy on Wednesday we will likely do a colonoscopy as an outpatient to look for a source. Currently the patient's hematocrit is 31.6 %. 05/02/17--We will recheck the CBC tomorrow to make sure this is not changed significantly. 05/03/17--we will need to do a colonoscopy as an outpatient down the road. Patient's hematocrit is stable at 33%. No bleeding source found in upper GI tract Current Visit: Yes (4) Microcytic anemia Status: Acute Assessment and plan: As mentioned above, we are trying to find a source for the patient's underlying anemia. Upper endoscopy on 05/03/17 05/03/17--will arrange for colonoscopy as an outpatient. Current Visit: Yes Gastroenterology - PN: Subj Interval history: No new complaints except she feels like her reflux is actually "slightly worse" she did undergo upper endoscopy today, see above. Exam (Progress Note) - Constitutional Vitals: Period Temp Pulse Resp BP Sys/Knight Pulse Ox Last 24 Hr 96.8 F-98.6 F 66-84 14-20 108-141/47-78 90-100 General appearance: no acute distress - Head Head exam: Present: normocephalic - Eye Eye exam: Present: EOMI - Respiratory Respiratory exam: Present: clear to auscultation bilaterally - Cardiovascular Cardiovascular exam: Present: regular rate and rhythm - GI/Abdominal GI/Abdominal exam: Present: normal bowel sounds, soft. Absent: distended, tenderness, rebound - Extremities Exam Extremities exam: Present: normal inspection - Neurological Exam Neurological exam: Present: alert, oriented X3, CN II-XII intact - Psychiatric Psychiatric exam: Present: normal affect, normal mood - Skin Skin exam: Present: warm Results - Labs CBC & BMP: 05/03/17 05:15 05/03/17 05:15
--- NOTE | 2017-05-03 09:36 | Anesthesia Post-Op ---
Anesthesia Post OP - Post Ansesthetic Evaluation Patient seen in post op: Yes Resp: within normal limits CV: within normal limits Mental: within normal limits Temp: within normal limits [id number]: within normal limits Nausea and Vomiting: within normal limits Pain: within normal limits
[2017-05-03] MEDS: sitaGLIPtin 25 MG TABLET PO SCH ×2 (12:03→20:05)
[2017-05-03] MEDS: GABAPENTIN 300 MG CAPSULE PO SCH ×2 (12:03→20:05)
[2017-05-03] MEDS: FLUTICASONE/SALMETEROL 100-50 DISKUS 14 DOSE INH SCH (12:03)
[2017-05-03] MEDS: glipiZIDE 10 MG TABLET PO SCH (12:03)
[2017-05-03] MEDS: LISINOPRIL 10 MG TABLET PO SCH (12:03)
--- NOTE | 2017-05-03 14:41 | Hospitalist Progress Note ---
Assessment and Plan (1) History of esophageal stricture Status: Acute Assessment and plan: GI consult reviewed. Status post EGD with dilatation. Await GI reevaluation in a.m. post procedure Current Visit: Yes (2) Acute kidney injury Status: Resolved Assessment and plan: Resolved with IV fluids. Hold diuretics. Current Visit: Yes (3) Diabetes type 2, controlled Status: Chronic Current Visit: Yes (4) Hypertension Status: Chronic Current Visit: Yes Qualifiers: Hypertension type: essential hypertension Qualified Code(s): I10 - Essential (primary) hypertension (5) Shoulder pain, left Status: Chronic Assessment and plan: Follow-up with orthopedics as an outpatient. X-ray without acute fracture Or dislocation. Current Visit: Yes Qualifiers: Chronicity: chronic Qualified Code(s): M25.512 - Pain in left shoulder; G89.29 - Other chronic pain Hospitalist: Subjective Interval history: The patient underwent EGD today without complication. She was dilated by Dr. Jordan. He feels that she has an element of esophageal dysmotility. He is going to reevaluate her in the morning and she could be discharged later tomorrow. She offers no complaints at this time. Exam - Constitutional Vitals: Period Temp Pulse Resp BP Sys/Knight Pulse Ox Last 24 Hr 96.5 F-98.6 F 62-84 14-21 108-130/47-78 90-100 Exam: Constitutional System: no distress. No tremulousness. Head: Normocephalic, atraumatic. Ears, Nose and Throat System: No pain or tenderness. No epistaxis or discharge Eyes System: Pupils equal, round, and reactive. Extraocular muscles intact. Neck: Supple, without adenopathy, No jugular venous distention. Respiratory System: Chest clear to auscultation. Cardiovascular System: Heart with regular rate and rhythm. No murmur. GI System: Abdomen soft, nontender. Normo active bowel sounds present. Musculoskeletal System: limbs with no pedal edema. Full distal pulses. Neurological System: No discernable sensory deficit. No aphasia Psychiatric System: Conversation is rational Results - Labs CBC & BMP: 05/03/17 05:15 05/03/17 05:15 Lab Results: I have reviewed the past 24 hour labs Quality Measures - Stroke Symptom Onset Unknown: No
[2017-05-03] MEDS: SODIUM CHLORIDE 0.9% 1,000 ML IV SCH (18:35)
[2017-05-03] MEDS: INSULIN GLARGINE 100 UNIT/ML SUBCUT SCH (20:05)
[2017-05-03] MEDS: TRAVOPROST 0.004% OPH SOLN 2.5 ML BOTTLE BOTH EYES SCH (20:06)
[2017-05-04] MEDS: ALBUTEROL/IPRATROPIUM 3 ML NEB RESP TX SCH ×3 (00:24→07:19)
[2017-05-04] MEDS: PANTOPRAZOLE 40 MG TABLET PO SCH (06:03)
[2017-05-04 06:31] LABS: Basophils # 0.1 10*3/uL (0.0-0.2); Basophils % 0.6 % (0.0-0.8); Eosinophils # 0.4 10*3/uL (0.0-0.87); Eosinophils % 3.6 % (0.00-10.9); Hematocrit 32.7 VOL% (35.7-47.0); Hemoglobin 11.4 GM/DL (12.0-16.0); Immature Granulocytes % 0.6 %; Immature Granulocytes Absolute 0.07 #; Lymphocytes # 1.8 10*3/uL (1.4-4.0); Lymphocytes % 16.4 % (21.3-54.2); Mean Corpuscular HGB Conc 34.9 GM/DL (32-36); Mean Corpuscular Hemoglobin 27 PG (27-34); Mean Platelet Volume 10.5 FL (9.6-12.0); Monocytes # 0.6 10*3/uL (0.11-0.8); Monocytes % 5.8 % (1.7-12.7); Neutrophils # 7.9 10*3/uL (1.4-7.4); Platelet Count 287 T/CUMM (130-400); Red Blood Count 4.19 MC/CUMM (3.8-5.5); Red Cell Distribution Width 14.2 % (9.3-17.3); White Blood Count 10.8 T/CUMM (4-12)
--- NOTE | 2017-05-04 09:13 | Discharge Summary ---
Hospital Course - Hospital Course Hospital Course: 81-year-old female admitted to the hospital with chest pain and epigastric abdominal pain. She has a history of esophageal stricture and dilatation performed by Dr. Bravo several years ago. Her cardiac enzymes were negative and her chest pain was thought to be secondary to esophageal stricture and esophageal spasm. She was seen in consultation by gastroenterology Dr. Jordan. She underwent a barium swallow and EGD. Dr. Jordan believes that the patient has esophageal dysmotility and she underwent esophageal dilatation during this hospitalization. She was also noted to have some gastritis and twice daily Protonix was recommended. The patient had no adverse events during the course of the hospitalization and has reached maximal benefit. She is ready for discharge home with outpatient follow-up with her primary care physician and field reviewer. She was given a new prescription for Protonix 40 mg twice daily by mouth. Her home medications were reviewed and reconciled. - Time spent with patient Time with patient DS: Greater than 30 minutes (Total discharge time for this patient, including [id number] time, clinical documentation, medication reconciliation, and discharge planning was 34 minutes) Diagnosis - Discharge Diagnosis (1) History of esophageal stricture Status: Resolved (2) Acute kidney injury Status: Resolved (3) Diabetes type 2, controlled Status: Chronic (4) Hypertension Status: Chronic (5) Shoulder pain, left Status: Chronic Specialty Discharge - Follow Up or Referrals Follow up with: Lamin Jordan MD [Physician] - (6-8 weeks with outpatient C-scope) Discharge Plan - Discharge Data Disposition: Disch To Home/Self Care Condition at Discharge: Stable Discharge Diet: advance to your usual diet Activity: resume usual activities as tolerated Hygiene: no restrictions Weight Bearing at Discharge: full weight bearing Contact your physician if you experience:: Nausea/Vomiting, Bleeding, pain uncontrolled by pain medications - Discharge Medications New Pantoprazole Tab [Protonix Tab] 40 mg PO BID@0700,1900 #60 tablet Continue Sitagliptin Phos/Metformin HCl [Janumet 50-500 mg Tablet] 1 tablet PO BID Levocetirizine Dihydrochloride 5 mg PO QPM Fluticasone/Salmeterol 100-50 [Advair 100-50] 2 puff INH DAILY Cyproheptadine Tab [Periactin Tab] 4 mg PO TID W/MEALS NIFEdipine [Nifedipine ER] 30 mg PO DAILY Lisinopril 10 mg PO DAILY Cyclobenzaprine [Flexeril] 10 mg PO TID Tramadol HCl [Tramadol Tab] 50 mg PO Q6H PRN PRN Reason: Pain Furosemide Tab [Lasix Tab] 40 mg PO DAILY PRN PRN Reason: Edema Potassium Chloride [Klor-Con M10] 10 meq PO DAILY glipiZIDE [Glucotrol] 10 mg PO AC BREAKFAST Albuterol Sulfate [Proair HFA] 2 puff INH Q4H PRN PRN Reason: Shortness Of Breath/Wheezing Magnesium 250 mg PO QAM Gabapentin 300 mg PO BID Travoprost 0.004% Oph Soln [Travatan Z] 1 drop BOTH EYES BEDTIME Triamterene/Hydrochlorothiazid [Triamterene-Hctz 37.5-25 mg Tb] 1 tablet PO DAILY Tiotropium Inhalation [Spiriva Handihaler] 1 puff INH DAILY Insulin Detemir [Levemir FlexPen] 15 units SUBCUT BEDTIME Nitroglycerin Sl Tab [Nitrostat] 0.4 mg SL Q5M PRN PRN Reason: Chest Pain Aspirin EC Tab 81 mg PO QPM Discontinued Esomeprazole Magnesium [Esomeprazole] 20 mg PO DAILY - Follow Up or Referral Follow Up: Lamin Jordan MD [Physician] - (6-8 weeks with outpatient C-scope) - Forms/Instructions Exam - Constitutional Vitals: Period Temp Pulse Resp BP Sys/Knight Pulse Ox Last 24 Hr 96.3 F-97.4 F 62-85 15-21 110-146/53-84 92-100 Discharge Results Procedures and tests throughout hospitalization: Pending Orders 05/05/17 04:00 Comp Blood Count Auto Diff IN AM Labs on day of discharge: Labs from last 24 hours 05/04/17 05/04/17 05/03/17 08:07 06:16 20:06 WBC 10.8 RBC 4.19 Hgb 11.4 L Hct 32.7 L MCV 78.0 L MCH 27 MCHC 34.9 RDW 14.2 Plt Count 287 MPV 10.5 Neut % (Auto) 73.0 Lymph % (Auto) 16.[address] [place] % (Auto) 5.8 Eos % (Auto) 3.6 Baso % (Auto) 0.6 Neut # (Auto) 7.9 H Lymph # (Auto) 1.8 [place] # (Auto) 0.6 Eos # (Auto) 0.4 Baso # (Auto) 0.1 Immature Gran % 0.6 Nucleated RBC % 0.0 Immature Gran # 0.07 Nucleated RBCs # 0.00 POC Glucose 188 H 231 H 05/03/17 05/03/17 05/03/17 16:52 11:06 09:03 WBC RBC Hgb Hct MCV MCH MCHC RDW Plt Count MPV Neut % (Auto) Lymph % (Auto) [place] % (Auto) Eos % (Auto) Baso % (Auto) Neut # (Auto) Lymph # (Auto) [place] # (Auto) Eos # (Auto) Baso # (Auto) Immature Gran % Nucleated RBC % Immature Gran # Nucleated RBCs # POC Glucose 200 H 185 H 182 H DS: Provider Date of admission: 04/30/17 20:18 Primary care physician: . No PCP Attending physician on admission: Ramon Beyer DO Consults: 04/30/17 22:27 Consult to Physician [CONS] Routine Comment: Esophageal spasm/stricture Consulting Provider: Lamin Jordan Person Notified: aware 05/03/17 06:00 Consult to Anesthesiology [CONS] Routine Consulting Provider: Reason for Anesthesiology: Pre-op Clearance Discharging clinician: Stvee Burnett MD Expected date of discharge: 05/04/17
[2017-05-04] MEDS: CYCLOBENZAPRINE 10 MG TABLET PO SCH (09:48)
[2017-05-04] MEDS: CYPROHEPTADINE 4 MG TABLET PO SCH (09:48)
[2017-05-04] MEDS: LISINOPRIL 10 MG TABLET PO SCH (09:48)
[2017-05-04] MEDS: MAGNESIUM OXIDE 400 MG TABLET PO SCH (09:48)
[2017-05-04] MEDS: sitaGLIPtin 25 MG TABLET PO SCH (09:48)
[2017-05-04] MEDS: POTASSIUM CHLORIDE 10 MEQ TABLET PO SCH (09:48)
[2017-05-04] MEDS: glipiZIDE 10 MG TABLET PO SCH (09:48)
[2017-05-04] MEDS: GABAPENTIN 300 MG CAPSULE PO SCH (09:48)
[2017-05-04] MEDS: FLUTICASONE/SALMETEROL 100-50 DISKUS 14 DOSE INH SCH (09:49)
[2017-05-04 10:06] VITALS: BP 131/71
--- NOTE | 2017-05-04 11:16 | Pathology Report from [facility] ---
[facility] ACCESSION # : [id number] PATIENT NAME : Aniya Hagan ORDERING DR : Lamin Jordan MD CLINICAL HX: Anemia; R/O Sprue POST-OP DX: Same SPECIMEN INFO: #1 SATISH #2 Duodenum GROSS DESCRIPTION: #1 Received in formalin labeled with the patients name ANIYA HAGAN and #1 consists of a 0.7 x 0.2 cm aggregate of schaefer tissue. Submitted in cassette #1.#2 Received in formalin labeled with the patients name ANIYA HGAAN and #2 consists of a 0.6 x 0.2 cm aggregate of schaefer schaefer tissue. Submitted in cassette #2. DIAGNOSIS FOR ANIYA HAGAN: #1 SATISH BIOPSIES: Chronic superficial gastritis. H. pylori not seen on H&E or special stain with appropriate control.# 2 DUODENUM BIOPSY: Mild chronic non-specific duodenitis with normal villous architecture. No evidence of granulomas, tumor, parasites, or celiac disease. COLLECTED DATE: 05/03/2017 [facility] REPORT DATE: 05/04/2017 ELECTRONICALLY SIGNED BY: Virginia Zacarias M.D. 05/04/2017 - 9:12:15 [place]
== END 2017-05-04 11:30 | disposition home or self-care (01) ==
LOC: EDUNIT# → N.EDINP 17:14 → N.ED 17:14 → SUATTDRO 20:18 → N.TELEN 20:35 → N.5E 05-02 13:02
PROVIDERS: ADMIT Phlebology; ATTEND Family Medicine

== ENCOUNTER 2019-05-19 09:13 | Inpatient (IN) ==
[2019-05-19] MEDS ORDERED: ONDANSETRON 4 MG/2 ML VIAL IV PRN (15:48)
[2019-05-19] MEDS ORDERED: ACETAMINOPHEN 325 MG TABLET PO PRN (15:48)
[2019-05-19] MEDS ORDERED: DEXTROSE 10% 250 ML BAG IV PRN (16:14)
[2019-05-19] MEDS ORDERED: GLUCAGON 1 MG VIAL IM PRN (16:14)
[2019-05-19] MEDS: INSULIN LISPRO 100 UNIT/ML SUBCUT SCH ×2 (17:19→21:12)
[2019-05-19 17:39] LABS: Basophils # 0.1 10*3/uL (0.0-0.2); Basophils % 0.3 % (0.0-0.8); Hematocrit 39.8 VOL% (35.7-47.0); Hemoglobin 12.7 GM/DL (12.0-16.0); Immature Granulocytes % 1.1 %; Immature Granulocytes Absolute 0.24 #; Lymphocytes # 1.2 10*3/uL (1.4-4.0); Lymphocytes % 5.3 % (21.3-54.2); Mean Corpuscular HGB Conc 31.9 GM/DL (32-36); Mean Corpuscular Volume 80.2 FL (87-102); Mean Platelet Volume 10.7 FL (9.6-12.0); Monocytes % 7.6 % (1.7-12.7); Neutrophils % 85.7 % (38.7-73.9); Platelet Count 339 T/CUMM (130-400); Red Blood Count 4.96 MC/CUMM (3.8-5.5); Red Cell Distribution Width 14.8 % (9.3-17.3); White Blood Count 22.2 T/CUMM (4-12)
[2019-05-19] MEDS: PIPERACILLIN/TAZOBACTAM 3,375 MG in SODIUM CHLORIDE 0.9% 100 ML IV SCH (17:55)
[2019-05-19] MEDS: FAMOTIDINE 20 MG/2 ML VIAL IV SCH (17:56)
[2019-05-19] MEDS: DEXTROSE 5% NACL 0.45% 1,000 ML IV SCH (18:00)
[2019-05-19 18:03] LABS: Amylase 27 U/L (25-115)
[2019-05-19 18:08] LABS: Bilirubin,Total 0.6 MG/DL (0.2-1.0); Calcium 8.7 MG/DL (8.5-10.1); Total Protein 7.4 G/DL (6.4-8.3)
[2019-05-19 18:15] LABS: Risk Ratio 1.6; Thyroid Stimulating Hormone 4.68 uIU/ml (0.358-3.74); VLDL CHOLESTEROL 18.2 MG/DL
[2019-05-19 18:21] LABS: Band Neutrophils 4 % (0-10); Hypochromasia Slight; Lymphocytes 7 % (20-55); Microcytosis Slight; Platelet Estimate Adequate; Segmented Neutrophils 80 % (50-85); Total Cells Counted 100
[2019-05-19] MEDS: ENOXAPARIN 40 MG/0.4 ML SYRINGE SUBCUT SCH (20:26)
[2019-05-19] MEDS: MORPHINE 4 MG/1 ML VIAL IV PRN (22:16)
[2019-05-20] MEDS: PIPERACILLIN/TAZOBACTAM 3,375 MG in SODIUM CHLORIDE 0.9% 100 ML IV SCH ×3 (00:17→16:19)
[2019-05-20] MEDS: FAMOTIDINE 20 MG/2 ML VIAL IV SCH ×2 (04:18→16:20)
[2019-05-20 04:52] LABS: Basophils # 0.1 10*3/uL (0.0-0.2); Basophils % 0.3 % (0.0-0.8); Eosinophils % 0.1 % (0.00-10.9); Hematocrit 36.1 VOL% (35.7-47.0); Immature Granulocytes % 0.6 %; Immature Granulocytes Absolute 0.12 #; Lymphocytes # 1.2 10*3/uL (1.4-4.0); Lymphocytes % 6.5 % (21.3-54.2); Mean Corpuscular HGB Conc 33.2 GM/DL (32-36); Mean Platelet Volume 11.9 FL (9.6-12.0); Monocytes % 7.3 % (1.7-12.7); Neutrophils % 85.2 % (38.7-73.9); Platelet Count 283 T/CUMM (130-400); Red Blood Count 4.63 MC/CUMM (3.8-5.5); Red Cell Distribution Width 14.7 % (9.3-17.3); White Blood Count 18.7 T/CUMM (4-12)
[2019-05-20 05:15] LABS: Calcium 8.2 MG/DL (8.5-10.1); Osmolality,Calculated 288.4 MOS/KG (273-304)
[2019-05-20] MEDS: MORPHINE 4 MG/1 ML VIAL IV PRN (07:25)
[2019-05-20] MEDS: DEXTROSE 5% NACL 0.45% 1,000 ML IV SCH (07:57)
[2019-05-20] MEDS: INSULIN LISPRO 100 UNIT/ML SUBCUT SCH ×4 (08:18→20:47)
[2019-05-20] MEDS ORDERED: ALBUTEROL 2.5 MG/3 ML NEB RESP TX PRN (08:47)
[2019-05-20] MEDS ORDERED: NITROGLYCERIN SL 0.4 MG TABLET SL PRN (08:47)
[2019-05-20] MEDS ORDERED: ACETAMINOPHEN 500 MG TABLET PO PRN (08:47)
[2019-05-20] MEDS ORDERED: traMADol 50 MG TABLET PO PRN (08:47)
[2019-05-20] MEDS ORDERED: POTASSIUM CHLORIDE 10 MEQ TABLET PO SCH (09:00)
[2019-05-20 09:20] LABS: Apearance,Urine CLOUDY (Clear); Bacteria,Urine Occasional /HPF (Few); Bilirubin,Urine Negative (Negative); Blood, Urine Small mg/dL (Negative); Glucose,Urine (UA) 50 mg/dL (Negative); Ketones,Urine 5 mg/dL (Negative); Nitrite,Urine Negative (Negative); Protein,Urine Negative; RBC,Urine 2 /HPF (0-4); Squamous Epithelial Cell,Urine Few /HPF (0-10); Urine Color Yellow (Yellow); Urine Specific Gravity 1.032 (1.001-1.035); Urine Urobilinogen < 2.0 EU/DL (0.2-1.0); WBC,Urine 1 /HPF (0-6)
[2019-05-20] MEDS: FLUTICASONE/SALMETEROL 100-50 DISKUS 14 DOSE INH SCH (11:26)
[2019-05-20] MEDS: CYPROHEPTADINE 4 MG TABLET PO SCH ×2 (11:27→16:20)
[2019-05-20] MEDS: POTASSIUM CHLORIDE 10 MEQ TABLET PO SCH (11:27)
[2019-05-20] MEDS: GABAPENTIN 300 MG CAPSULE PO SCH ×2 (11:27→20:38)
[2019-05-20] MEDS: FEBUXOSTAT 80 MG TABLET PO SCH (11:27)
[2019-05-20] MEDS: MAGNESIUM OXIDE 400 MG TABLET PO SCH (11:27)
[2019-05-20] MEDS: LISINOPRIL 10 MG TABLET PO SCH (11:27)
[2019-05-20] MEDS: CYCLOBENZAPRINE 10 MG TABLET PO SCH ×3 (11:28→20:37)
[2019-05-20] MEDS: FERROUS SULFATE 325 MG TABLET PO SCH (11:28)
[2019-05-20] MEDS: PANTOPRAZOLE 40 MG TABLET PO SCH (11:28)
[2019-05-20] MEDS: LORATADINE 10 MG TABLET PO SCH (11:28)
[2019-05-20] MEDS: IPRATROPIUM 500 MCG/2.5 ML NEB RESP TX SCH ×3 (11:45→19:53)
[2019-05-20] MEDS: ENOXAPARIN 40 MG/0.4 ML SYRINGE SUBCUT SCH (20:36)
[2019-05-20] MEDS: ASPIRIN EC 81 MG TABLET PO SCH (20:37)
[2019-05-20] MEDS: CETIRIZINE 10 MG TABLET PO SCH (20:37)
[2019-05-20] MEDS: diphenhydrAMINE CAP 25 MG CAPSULE PO SCH (20:37)
[2019-05-20] MEDS: SERTRALINE 25 MG TABLET PO SCH (20:38)
[2019-05-20] MEDS: TRAVOPROST 0.004% OPH SOLN 2.5 ML BOTTLE BOTH EYES SCH (20:47)
[2019-05-20] MEDS: INSULIN GLARGINE 100 UNIT/ML SUBCUT SCH (20:48)
[2019-05-21] MEDS: DEXTROSE 5% NACL 0.45% 1,000 ML IV SCH ×2 (00:05→09:05)
[2019-05-21] MEDS: PIPERACILLIN/TAZOBACTAM 3,375 MG in SODIUM CHLORIDE 0.9% 100 ML IV SCH ×3 (00:05→17:49)
[2019-05-21] MEDS: FAMOTIDINE 20 MG/2 ML VIAL IV SCH ×3 (04:19→17:49)
[2019-05-21 05:31] LABS: Basophils # 0.1 10*3/uL (0.0-0.2); Basophils % 0.4 % (0.0-0.8); Eosinophils # 0.2 10*3/uL (0.0-0.87); Eosinophils % 1.1 % (0.00-10.9); Hematocrit 33.8 VOL% (35.7-47.0); Hemoglobin 10.9 GM/DL (12.0-16.0); Immature Granulocytes % 0.8 %; Immature Granulocytes Absolute 0.11 #; Lymphocytes # 1.4 10*3/uL (1.4-4.0); Mean Corpuscular HGB Conc 32.2 GM/DL (32-36); Mean Corpuscular Volume 80.3 FL (87-102); Mean Platelet Volume 11.3 FL (9.6-12.0); Monocytes % 7.4 % (1.7-12.7); Neutrophils % 79.3 % (38.7-73.9); Platelet Count 287 T/CUMM (130-400); Red Blood Count 4.21 MC/CUMM (3.8-5.5); Red Cell Distribution Width 14.7 % (9.3-17.3); White Blood Count 13.1 T/CUMM (4-12)
[2019-05-21 05:59] LABS: Calcium 8.7 MG/DL (8.5-10.1); Osmolality,Calculated 294.1 MOS/KG (273-304)
[2019-05-21] MEDS: IPRATROPIUM 500 MCG/2.5 ML NEB RESP TX SCH ×4 (08:18→19:13)
[2019-05-21] MEDS: INSULIN LISPRO 100 UNIT/ML SUBCUT SCH ×4 (09:05→21:25)
[2019-05-21] MEDS: MAGNESIUM OXIDE 400 MG TABLET PO SCH (09:06)
[2019-05-21] MEDS: GABAPENTIN 300 MG CAPSULE PO SCH ×2 (09:06→20:48)
[2019-05-21] MEDS: CYPROHEPTADINE 4 MG TABLET PO SCH ×3 (09:06→16:09)
[2019-05-21] MEDS: FERROUS SULFATE 325 MG TABLET PO SCH (09:06)
[2019-05-21] MEDS: LORATADINE 10 MG TABLET PO SCH (09:06)
[2019-05-21] MEDS: CYCLOBENZAPRINE 10 MG TABLET PO SCH ×3 (09:06→20:49)
[2019-05-21] MEDS: LISINOPRIL 10 MG TABLET PO SCH (09:06)
[2019-05-21] MEDS: POTASSIUM CHLORIDE 10 MEQ TABLET PO SCH (09:07)
[2019-05-21] MEDS: PANTOPRAZOLE 40 MG TABLET PO SCH (09:07)
[2019-05-21] MEDS: FLUTICASONE/SALMETEROL 100-50 DISKUS 14 DOSE INH SCH (09:07)
[2019-05-21] MEDS: FEBUXOSTAT 80 MG TABLET PO SCH (09:11)
[2019-05-21] MEDS ORDERED: MAGNESIUM CITRATE 300 ML BOTTLE PO ONE (12:14)
[2019-05-21] MEDS ORDERED: SODIUM PHOSPHATE ENEMA 133 ML BOTTLE RECTAL ONE (15:54)
[2019-05-21] MEDS: CETIRIZINE 10 MG TABLET PO SCH (20:48)
[2019-05-21] MEDS: diphenhydrAMINE CAP 25 MG CAPSULE PO SCH (20:48)
[2019-05-21] MEDS: ENOXAPARIN 40 MG/0.4 ML SYRINGE SUBCUT SCH (20:48)
[2019-05-21] MEDS: ASPIRIN EC 81 MG TABLET PO SCH (20:48)
[2019-05-21] MEDS: SERTRALINE 25 MG TABLET PO SCH (20:49)
[2019-05-21] MEDS: INSULIN GLARGINE 100 UNIT/ML SUBCUT SCH (21:25)
[2019-05-21] MEDS: TRAVOPROST 0.004% OPH SOLN 2.5 ML BOTTLE BOTH EYES SCH (21:25)
[2019-05-22] MEDS: PIPERACILLIN/TAZOBACTAM 3,375 MG in SODIUM CHLORIDE 0.9% 100 ML IV SCH (00:08)
[2019-05-22] MEDS: FAMOTIDINE 20 MG/2 ML VIAL IV SCH ×2 (04:04→17:05)
[2019-05-22 04:52] LABS: Basophils % 0.3 % (0.0-0.8); Eosinophils # 0.2 10*3/uL (0.0-0.87); Eosinophils % 1.7 % (0.00-10.9); Hematocrit 33.4 VOL% (35.7-47.0); Hemoglobin 11.1 GM/DL (12.0-16.0); Immature Granulocytes % 0.6 %; Immature Granulocytes Absolute 0.07 #; Lymphocytes # 1.1 10*3/uL (1.4-4.0); Lymphocytes % 9.2 % (21.3-54.2); Mean Corpuscular HGB Conc 33.2 GM/DL (32-36); Mean Corpuscular Volume 78.2 FL (87-102); Mean Platelet Volume 11.3 FL (9.6-12.0); Neutrophils % 78.2 % (38.7-73.9); Platelet Count 324 T/CUMM (130-400); Red Blood Count 4.27 MC/CUMM (3.8-5.5); Red Cell Distribution Width 14.6 % (9.3-17.3); White Blood Count 12.1 T/CUMM (4-12)
[2019-05-22 05:31] LABS: Calcium 8.6 MG/DL (8.5-10.1); Osmolality,Calculated 286.1 MOS/KG (273-304)
[2019-05-22] MEDS: IPRATROPIUM 500 MCG/2.5 ML NEB RESP TX SCH ×4 (07:30→19:00)
[2019-05-22] MEDS: FERROUS SULFATE 325 MG TABLET PO SCH (09:11)
[2019-05-22] MEDS: POTASSIUM CHLORIDE 10 MEQ TABLET PO SCH (09:11)
[2019-05-22] MEDS: AMOXICILLIN/CLAV 875 MG TABLET PO SCH ×2 (09:11→22:18)
[2019-05-22] MEDS: LORATADINE 10 MG TABLET PO SCH (09:11)
[2019-05-22] MEDS: CYPROHEPTADINE 4 MG TABLET PO SCH ×3 (09:11→17:05)
[2019-05-22] MEDS: POLYETHYLENE GLYCOL POWDER 17 GM PACK PO SCH ×2 (09:11→22:25)
[2019-05-22] MEDS: GABAPENTIN 300 MG CAPSULE PO SCH ×2 (09:12→22:19)
[2019-05-22] MEDS: LISINOPRIL 10 MG TABLET PO SCH (09:12)
[2019-05-22] MEDS: INSULIN LISPRO 100 UNIT/ML SUBCUT SCH ×4 (09:12→23:13)
[2019-05-22] MEDS: CYCLOBENZAPRINE 10 MG TABLET PO SCH ×3 (09:12→22:19)
[2019-05-22] MEDS: PANTOPRAZOLE 40 MG TABLET PO SCH (09:12)
[2019-05-22] MEDS: MAGNESIUM OXIDE 400 MG TABLET PO SCH (09:12)
[2019-05-22] MEDS: FEBUXOSTAT 80 MG TABLET PO SCH (09:13)
[2019-05-22] MEDS: FLUTICASONE/SALMETEROL 100-50 DISKUS 14 DOSE INH SCH (09:17)
[2019-05-22] MEDS ORDERED: POTASSIUM CHLORIDE 20 MEQ TABLET PO ONE (11:00)
[2019-05-22] MEDS: DEXTROSE 5% NACL 0.45% 1,000 ML IV SCH ×2 (11:47→12:18)
[2019-05-22] MEDS: ASPIRIN EC 81 MG TABLET PO SCH (22:18)
[2019-05-22] MEDS: diphenhydrAMINE CAP 25 MG CAPSULE PO SCH (22:19)
[2019-05-22] MEDS: SERTRALINE 25 MG TABLET PO SCH (22:19)
[2019-05-22] MEDS: CETIRIZINE 10 MG TABLET PO SCH (22:20)
[2019-05-22] MEDS: ENOXAPARIN 40 MG/0.4 ML SYRINGE SUBCUT SCH (22:22)
[2019-05-22] MEDS: TRAVOPROST 0.004% OPH SOLN 2.5 ML BOTTLE BOTH EYES SCH (22:27)
[2019-05-22] MEDS: INSULIN GLARGINE 100 UNIT/ML SUBCUT SCH (23:12)
[2019-05-23] MEDS: DEXTROSE 5% NACL 0.45% 1,000 ML IV SCH ×2 (01:58→14:24)
[2019-05-23 04:46] LABS: Basophils % 0.3 % (0.0-0.8); Eosinophils # 0.2 10*3/uL (0.0-0.87); Eosinophils % 1.5 % (0.00-10.9); Hemoglobin 10.9 GM/DL (12.0-16.0); Immature Granulocytes % 0.7 %; Immature Granulocytes Absolute 0.09 #; Lymphocytes # 1.5 10*3/uL (1.4-4.0); Lymphocytes % 11.6 % (21.3-54.2); Mean Corpuscular Volume 78.6 FL (87-102); Mean Platelet Volume 11.6 FL (9.6-12.0); Monocytes % 8.1 % (1.7-12.7); Neutrophils % 77.8 % (38.7-73.9); Platelet Count 328 T/CUMM (130-400); Red Cell Distribution Width 14.7 % (9.3-17.3); White Blood Count 12.8 T/CUMM (4-12)
[2019-05-23] MEDS: FAMOTIDINE 20 MG/2 ML VIAL IV SCH ×2 (05:05→16:42)
[2019-05-23 05:11] LABS: Calcium 8.5 MG/DL (8.5-10.1); Osmolality,Calculated 284.5 MOS/KG (273-304)
[2019-05-23] MEDS: IPRATROPIUM 500 MCG/2.5 ML NEB RESP TX SCH ×4 (07:30→19:17)
[2019-05-23] MEDS: INSULIN LISPRO 100 UNIT/ML SUBCUT SCH ×4 (09:09→21:29)
[2019-05-23] MEDS: POLYETHYLENE GLYCOL POWDER 17 GM PACK PO SCH ×3 (09:09→20:35)
[2019-05-23] MEDS: AMOXICILLIN/CLAV 875 MG TABLET PO SCH ×2 (09:10→20:34)
[2019-05-23] MEDS: FEBUXOSTAT 80 MG TABLET PO SCH (09:10)
[2019-05-23] MEDS: MAGNESIUM OXIDE 400 MG TABLET PO SCH (09:10)
[2019-05-23] MEDS: LORATADINE 10 MG TABLET PO SCH (09:10)
[2019-05-23] MEDS: CYCLOBENZAPRINE 10 MG TABLET PO SCH ×3 (09:10→20:31)
[2019-05-23] MEDS: GABAPENTIN 300 MG CAPSULE PO SCH ×2 (09:11→20:33)
[2019-05-23] MEDS: CYPROHEPTADINE 4 MG TABLET PO SCH ×3 (09:11→16:42)
[2019-05-23] MEDS: metroNIDAZOLE 500 MG TABLET PO SCH ×3 (09:11→21:28)
[2019-05-23] MEDS: PANTOPRAZOLE 40 MG TABLET PO SCH (09:12)
[2019-05-23] MEDS: POTASSIUM CHLORIDE 10 MEQ TABLET PO SCH (09:12)
[2019-05-23] MEDS: LISINOPRIL 10 MG TABLET PO SCH (09:12)
[2019-05-23] MEDS: FERROUS SULFATE 325 MG TABLET PO SCH (09:12)
[2019-05-23] MEDS: FLUTICASONE/SALMETEROL 100-50 DISKUS 14 DOSE INH SCH (09:13)
[2019-05-23] MEDS: METOCLOPRAMIDE 10 MG/2 ML VIAL IV SCH ×2 (17:18→23:18)
[2019-05-23] MEDS: ASPIRIN EC 81 MG TABLET PO SCH (20:32)
[2019-05-23] MEDS: CETIRIZINE 10 MG TABLET PO SCH (20:32)
[2019-05-23] MEDS: diphenhydrAMINE CAP 25 MG CAPSULE PO SCH (20:32)
[2019-05-23] MEDS: SERTRALINE 25 MG TABLET PO SCH (20:34)
[2019-05-23] MEDS: ENOXAPARIN 40 MG/0.4 ML SYRINGE SUBCUT SCH (20:39)
[2019-05-23] MEDS: TRAVOPROST 0.004% OPH SOLN 2.5 ML BOTTLE BOTH EYES SCH (20:40)
[2019-05-23] MEDS: INSULIN GLARGINE 100 UNIT/ML SUBCUT SCH (21:31)
[2019-05-23] MEDS: traZODone 50 MG TABLET PO PRN (23:17)
[2019-05-24 05:01] LABS: Basophils % 0.4 % (0.0-0.8); Eosinophils # 0.2 10*3/uL (0.0-0.87); Eosinophils % 2.2 % (0.00-10.9); Hemoglobin 10.4 GM/DL (12.0-16.0); Immature Granulocytes % 1.3 %; Immature Granulocytes Absolute 0.14 #; Lymphocytes # 1.4 10*3/uL (1.4-4.0); Lymphocytes % 12.9 % (21.3-54.2); Mean Corpuscular HGB Conc 32.5 GM/DL (32-36); Mean Corpuscular Volume 79.4 FL (87-102); Mean Platelet Volume 10.6 FL (9.6-12.0); Monocytes % 12.9 % (1.7-12.7); Neutrophils % 70.3 % (38.7-73.9); Platelet Count 330 T/CUMM (130-400); Red Blood Count 4.03 MC/CUMM (3.8-5.5); Red Cell Distribution Width 14.6 % (9.3-17.3); White Blood Count 11.1 T/CUMM (4-12)
[2019-05-24] MEDS: DEXTROSE 5% NACL 0.45% 1,000 ML IV SCH ×2 (05:01→21:29)
[2019-05-24] MEDS: FAMOTIDINE 20 MG/2 ML VIAL IV SCH ×2 (05:02→16:27)
[2019-05-24] MEDS: METOCLOPRAMIDE 10 MG/2 ML VIAL IV SCH (05:04)
[2019-05-24] MEDS: IPRATROPIUM 500 MCG/2.5 ML NEB RESP TX SCH ×4 (07:35→20:00)
[2019-05-24] MEDS: LISINOPRIL 10 MG TABLET PO SCH (09:13)
[2019-05-24] MEDS: FERROUS SULFATE 325 MG TABLET PO SCH (09:13)
[2019-05-24] MEDS: POLYETHYLENE GLYCOL POWDER 17 GM PACK PO SCH ×2 (09:13→21:28)
[2019-05-24] MEDS: PANTOPRAZOLE 40 MG TABLET PO SCH (09:13)
[2019-05-24] MEDS: POTASSIUM CHLORIDE 10 MEQ TABLET PO SCH (09:13)
[2019-05-24] MEDS: METOCLOPRAMIDE 5 MG TABLET PO SCH ×4 (09:13→21:28)
[2019-05-24] MEDS: FEBUXOSTAT 80 MG TABLET PO SCH (09:13)
[2019-05-24] MEDS: MAGNESIUM OXIDE 400 MG TABLET PO SCH (09:13)
[2019-05-24] MEDS: GABAPENTIN 300 MG CAPSULE PO SCH ×2 (09:13→21:28)
[2019-05-24] MEDS: CYCLOBENZAPRINE 10 MG TABLET PO SCH ×3 (09:14→21:28)
[2019-05-24] MEDS: AMOXICILLIN/CLAV 875 MG TABLET PO SCH ×2 (09:14→21:28)
[2019-05-24] MEDS: CYPROHEPTADINE 4 MG TABLET PO SCH ×3 (09:14→16:28)
[2019-05-24] MEDS: LORATADINE 10 MG TABLET PO SCH (09:14)
[2019-05-24] MEDS: INSULIN LISPRO 100 UNIT/ML SUBCUT SCH ×4 (09:52→21:29)
[2019-05-24] MEDS: metroNIDAZOLE 500 MG TABLET PO SCH ×3 (09:52→21:28)
[2019-05-24] MEDS: FLUTICASONE/SALMETEROL 100-50 DISKUS 14 DOSE INH SCH (09:54)
[2019-05-24] MEDS: CETIRIZINE 10 MG TABLET PO SCH (21:27)
[2019-05-24] MEDS: INSULIN GLARGINE 100 UNIT/ML SUBCUT SCH (21:28)
[2019-05-24] MEDS: SERTRALINE 25 MG TABLET PO SCH (21:28)
[2019-05-24] MEDS: ASPIRIN EC 81 MG TABLET PO SCH (21:28)
[2019-05-24] MEDS: TRAVOPROST 0.004% OPH SOLN 2.5 ML BOTTLE BOTH EYES SCH (21:28)
[2019-05-24] MEDS: diphenhydrAMINE CAP 25 MG CAPSULE PO SCH (21:28)
[2019-05-24] MEDS: ENOXAPARIN 40 MG/0.4 ML SYRINGE SUBCUT SCH (21:29)
[2019-05-25 05:26] LABS: Basophils % 0.3 % (0.0-0.8); Eosinophils # 0.1 10*3/uL (0.0-0.87); Eosinophils % 1.2 % (0.00-10.9); Hematocrit 29.4 VOL% (35.7-47.0); Immature Granulocytes % 0.8 %; Immature Granulocytes Absolute 0.09 #; Lymphocytes # 1.2 10*3/uL (1.4-4.0); Lymphocytes % 11.4 % (21.3-54.2); Mean Corpuscular Volume 77.6 FL (87-102); Mean Platelet Volume 10.7 FL (9.6-12.0); Monocytes % 15.5 % (1.7-12.7); Neutrophils % 70.8 % (38.7-73.9); Platelet Count 315 T/CUMM (130-400); Red Blood Count 3.79 MC/CUMM (3.8-5.5); Red Cell Distribution Width 14.6 % (9.3-17.3); White Blood Count 10.6 T/CUMM (4-12)
[2019-05-25] MEDS: FAMOTIDINE 20 MG/2 ML VIAL IV SCH ×2 (05:47→21:12)
[2019-05-25 05:49] LABS: Hypochromasia 1+; Platelet Estimate Adequate
[2019-05-25] MEDS: IPRATROPIUM 500 MCG/2.5 ML NEB RESP TX SCH ×4 (07:42→20:05)
[2019-05-25] MEDS: INSULIN LISPRO 100 UNIT/ML SUBCUT SCH ×4 (09:17→21:32)
[2019-05-25] MEDS: POLYETHYLENE GLYCOL POWDER 17 GM PACK PO SCH ×2 (09:17→21:18)
[2019-05-25] MEDS: FEBUXOSTAT 80 MG TABLET PO SCH (09:17)
[2019-05-25] MEDS: LORATADINE 10 MG TABLET PO SCH (09:18)
[2019-05-25] MEDS: CYCLOBENZAPRINE 10 MG TABLET PO SCH ×3 (09:18→21:18)
[2019-05-25] MEDS: POTASSIUM CHLORIDE 10 MEQ TABLET PO SCH (09:18)
[2019-05-25] MEDS: metroNIDAZOLE 500 MG TABLET PO SCH ×3 (09:18→21:18)
[2019-05-25] MEDS: MAGNESIUM OXIDE 400 MG TABLET PO SCH (09:18)
[2019-05-25] MEDS: METOCLOPRAMIDE 5 MG TABLET PO SCH ×4 (09:18→21:18)
[2019-05-25] MEDS: LISINOPRIL 10 MG TABLET PO SCH (09:18)
[2019-05-25] MEDS: GABAPENTIN 300 MG CAPSULE PO SCH ×2 (09:18→21:18)
[2019-05-25] MEDS: CYPROHEPTADINE 4 MG TABLET PO SCH ×3 (09:18→16:22)
[2019-05-25] MEDS: PANTOPRAZOLE 40 MG TABLET PO SCH (09:18)
[2019-05-25] MEDS: AMOXICILLIN/CLAV 875 MG TABLET PO SCH ×2 (09:18→21:18)
[2019-05-25] MEDS: FLUTICASONE/SALMETEROL 100-50 DISKUS 14 DOSE INH SCH (09:19)
[2019-05-25] MEDS: FERROUS SULFATE 325 MG TABLET PO SCH (09:19)
[2019-05-25] MEDS: DEXTROSE 5% NACL 0.45% 1,000 ML IV SCH (17:54)
[2019-05-25] MEDS: ASPIRIN EC 81 MG TABLET PO SCH (21:18)
[2019-05-25] MEDS: CETIRIZINE 10 MG TABLET PO SCH (21:18)
[2019-05-25] MEDS: SERTRALINE 25 MG TABLET PO SCH (21:18)
[2019-05-25] MEDS: diphenhydrAMINE CAP 25 MG CAPSULE PO SCH (21:18)
[2019-05-25] MEDS: TRAVOPROST 0.004% OPH SOLN 2.5 ML BOTTLE BOTH EYES SCH (21:19)
[2019-05-25] MEDS: INSULIN GLARGINE 100 UNIT/ML SUBCUT SCH (21:19)
[2019-05-25] MEDS: ENOXAPARIN 40 MG/0.4 ML SYRINGE SUBCUT SCH (21:25)
[2019-05-26 05:45] LABS: Basophils # 0.1 10*3/uL (0.0-0.2); Basophils % 0.4 % (0.0-0.8); Eosinophils % 0.2 % (0.00-10.9); Hematocrit 30.8 VOL% (35.7-47.0); Hemoglobin 10.2 GM/DL (12.0-16.0); Immature Granulocytes % 0.8 %; Immature Granulocytes Absolute 0.09 #; Lymphocytes # 0.9 10*3/uL (1.4-4.0); Mean Corpuscular HGB Conc 33.1 GM/DL (32-36); Mean Platelet Volume 10.2 FL (9.6-12.0); Monocytes % 11.4 % (1.7-12.7); Neutrophils % 79.2 % (38.7-73.9); Platelet Count 344 T/CUMM (130-400); Red Blood Count 3.95 MC/CUMM (3.8-5.5); Red Cell Distribution Width 14.4 % (9.3-17.3); White Blood Count 11.8 T/CUMM (4-12)
[2019-05-26 06:00] LABS: Calcium 8.4 MG/DL (8.5-10.1); Osmolality,Calculated 275.5 MOS/KG (273-304)
[2019-05-26 06:07] LABS: Band Neutrophils 4 % (0-10); Hypochromasia 1+; Lymphocytes 7 % (20-55); Platelet Estimate Adequate; Segmented Neutrophils 82 % (50-85); Total Cells Counted 100
[2019-05-26] MEDS: DEXTROSE 5% NACL 0.45% 1,000 ML IV SCH ×2 (07:49→21:16)
[2019-05-26] MEDS: IPRATROPIUM 500 MCG/2.5 ML NEB RESP TX SCH ×4 (08:09→18:56)
[2019-05-26] MEDS: INSULIN LISPRO 100 UNIT/ML SUBCUT SCH ×4 (09:15→21:18)
[2019-05-26] MEDS: FAMOTIDINE 20 MG/2 ML VIAL IV SCH ×2 (09:50→21:18)
[2019-05-26] MEDS: metroNIDAZOLE 500 MG TABLET PO SCH ×3 (09:51→21:17)
[2019-05-26] MEDS: PANTOPRAZOLE 40 MG TABLET PO SCH (09:51)
[2019-05-26] MEDS: POTASSIUM CHLORIDE 10 MEQ TABLET PO SCH (09:51)
[2019-05-26] MEDS: MAGNESIUM OXIDE 400 MG TABLET PO SCH (09:51)
[2019-05-26] MEDS: AMOXICILLIN/CLAV 875 MG TABLET PO SCH ×2 (09:51→21:16)
[2019-05-26] MEDS: LISINOPRIL 10 MG TABLET PO SCH (09:51)
[2019-05-26] MEDS: CYCLOBENZAPRINE 10 MG TABLET PO SCH ×3 (09:51→21:16)
[2019-05-26] MEDS: FEBUXOSTAT 80 MG TABLET PO SCH (09:51)
[2019-05-26] MEDS: LORATADINE 10 MG TABLET PO SCH (09:51)
[2019-05-26] MEDS: FERROUS SULFATE 325 MG TABLET PO SCH (09:52)
[2019-05-26] MEDS: GABAPENTIN 300 MG CAPSULE PO SCH ×2 (09:52→21:17)
[2019-05-26] MEDS: POLYETHYLENE GLYCOL POWDER 17 GM PACK PO SCH ×2 (09:52→21:17)
[2019-05-26] MEDS: CYPROHEPTADINE 4 MG TABLET PO SCH ×3 (09:56→17:27)
[2019-05-26] MEDS: METOCLOPRAMIDE 5 MG TABLET PO SCH ×4 (09:56→21:16)
[2019-05-26] MEDS: FLUTICASONE/SALMETEROL 100-50 DISKUS 14 DOSE INH SCH (11:21)
[2019-05-26] MEDS: CETIRIZINE 10 MG TABLET PO SCH (21:16)
[2019-05-26] MEDS: diphenhydrAMINE CAP 25 MG CAPSULE PO SCH (21:16)
[2019-05-26] MEDS: SERTRALINE 25 MG TABLET PO SCH (21:17)
[2019-05-26] MEDS: ASPIRIN EC 81 MG TABLET PO SCH (21:17)
[2019-05-26] MEDS: TRAVOPROST 0.004% OPH SOLN 2.5 ML BOTTLE BOTH EYES SCH (21:18)
[2019-05-26] MEDS: INSULIN GLARGINE 100 UNIT/ML SUBCUT SCH (21:36)
[2019-05-26] MEDS: ENOXAPARIN 40 MG/0.4 ML SYRINGE SUBCUT SCH (21:37)
[2019-05-27 05:26] LABS: Basophils % 0.3 % (0.0-0.8); Eosinophils # 0.1 10*3/uL (0.0-0.87); Eosinophils % 0.8 % (0.00-10.9); Hematocrit 29.8 VOL% (35.7-47.0); Hemoglobin 9.7 GM/DL (12.0-16.0); Immature Granulocytes % 0.6 %; Immature Granulocytes Absolute 0.08 #; Lymphocytes # 1.2 10*3/uL (1.4-4.0); Lymphocytes % 9.5 % (21.3-54.2); Mean Corpuscular HGB Conc 32.6 GM/DL (32-36); Mean Corpuscular Volume 79.5 FL (87-102); Mean Platelet Volume 10.2 FL (9.6-12.0); Neutrophils % 74.8 % (38.7-73.9); Platelet Count 367 T/CUMM (130-400); Red Blood Count 3.75 MC/CUMM (3.8-5.5); Red Cell Distribution Width 14.7 % (9.3-17.3); White Blood Count 12.8 T/CUMM (4-12)
[2019-05-27 06:10] LABS: Band Neutrophils 8 % (0-10); Eosinophils 1 % (0-10); Hypochromasia 1+; Lymphocytes 11 % (20-55); Microcytosis 1+; Segmented Neutrophils 72 % (50-85); Total Cells Counted 100
[2019-05-27 06:11] LABS: Platelet Estimate Normal
[2019-05-27] MEDS: IPRATROPIUM 500 MCG/2.5 ML NEB RESP TX SCH ×4 (07:07→18:55)
[2019-05-27] MEDS: LORATADINE 10 MG TABLET PO SCH (10:36)
[2019-05-27] MEDS: metroNIDAZOLE 500 MG TABLET PO SCH ×3 (10:36→21:38)
[2019-05-27] MEDS: AMOXICILLIN/CLAV 875 MG TABLET PO SCH ×2 (10:36→21:38)
[2019-05-27] MEDS: CYCLOBENZAPRINE 10 MG TABLET PO SCH ×3 (10:36→21:38)
[2019-05-27] MEDS: METOCLOPRAMIDE 5 MG TABLET PO SCH ×4 (10:36→21:38)
[2019-05-27] MEDS: MAGNESIUM OXIDE 400 MG TABLET PO SCH (10:36)
[2019-05-27] MEDS: LISINOPRIL 10 MG TABLET PO SCH (10:37)
[2019-05-27] MEDS: FEBUXOSTAT 80 MG TABLET PO SCH (10:37)
[2019-05-27] MEDS: FERROUS SULFATE 325 MG TABLET PO SCH (10:38)
[2019-05-27] MEDS: POTASSIUM CHLORIDE 10 MEQ TABLET PO SCH (10:38)
[2019-05-27] MEDS: FAMOTIDINE 20 MG/2 ML VIAL IV SCH ×2 (10:38→21:40)
[2019-05-27] MEDS: PANTOPRAZOLE 40 MG TABLET PO SCH (10:38)
[2019-05-27] MEDS: POLYETHYLENE GLYCOL POWDER 17 GM PACK PO SCH ×2 (10:38→21:30)
[2019-05-27] MEDS: GABAPENTIN 300 MG CAPSULE PO SCH ×2 (10:38→21:38)
[2019-05-27] MEDS: CYPROHEPTADINE 4 MG TABLET PO SCH ×3 (10:39→16:21)
[2019-05-27] MEDS: INSULIN LISPRO 100 UNIT/ML SUBCUT SCH ×4 (10:39→21:42)
[2019-05-27] MEDS: FLUTICASONE/SALMETEROL 100-50 DISKUS 14 DOSE INH SCH (10:40)
[2019-05-27] MEDS: DEXTROSE 5% NACL 0.45% 1,000 ML IV SCH (13:50)
[2019-05-27] MEDS: CETIRIZINE 10 MG TABLET PO SCH (21:38)
[2019-05-27] MEDS: SERTRALINE 25 MG TABLET PO SCH (21:38)
[2019-05-27] MEDS: diphenhydrAMINE CAP 25 MG CAPSULE PO SCH (21:38)
[2019-05-27] MEDS: ASPIRIN EC 81 MG TABLET PO SCH (21:38)
[2019-05-27] MEDS: TRAVOPROST 0.004% OPH SOLN 2.5 ML BOTTLE BOTH EYES SCH (21:39)
[2019-05-27] MEDS: INSULIN GLARGINE 100 UNIT/ML SUBCUT SCH (21:42)
[2019-05-27] MEDS: ENOXAPARIN 40 MG/0.4 ML SYRINGE SUBCUT SCH (21:43)
[2019-05-28 05:09] LABS: Basophils % 0.2 % (0.0-0.8); Eosinophils # 0.2 10*3/uL (0.0-0.87); Hematocrit 27.6 VOL% (35.7-47.0); Hemoglobin 9.3 GM/DL (12.0-16.0); Immature Granulocytes % 0.9 %; Immature Granulocytes Absolute 0.08 #; Lymphocytes # 1.3 10*3/uL (1.4-4.0); Lymphocytes % 14.7 % (21.3-54.2); Mean Corpuscular HGB Conc 33.7 GM/DL (32-36); Mean Corpuscular Volume 78.4 FL (87-102); Mean Platelet Volume 10.2 FL (9.6-12.0); Monocytes % 16.8 % (1.7-12.7); Neutrophils % 65.4 % (38.7-73.9); Platelet Count 356 T/CUMM (130-400); Red Blood Count 3.52 MC/CUMM (3.8-5.5); Red Cell Distribution Width 14.7 % (9.3-17.3); White Blood Count 8.9 T/CUMM (4-12)
[2019-05-28 05:38] LABS: Band Neutrophils 8 % (0-10); Eosinophils 3 % (0-10); Lymphocytes 18 % (20-55); Segmented Neutrophils 61 % (50-85); Total Cells Counted 100
[2019-05-28 05:39] LABS: Hypochromasia 1+; Microcytosis 1+; Ovalocytes Slight
[2019-05-28 05:40] LABS: Platelet Estimate Normal
[2019-05-28] MEDS: DEXTROSE 5% NACL 0.45% 1,000 ML IV SCH ×2 (06:36→22:23)
[2019-05-28] MEDS: IPRATROPIUM 500 MCG/2.5 ML NEB RESP TX SCH ×4 (07:13→19:09)
[2019-05-28] MEDS: METOCLOPRAMIDE 5 MG TABLET PO SCH ×4 (09:34→22:23)
[2019-05-28] MEDS: FERROUS SULFATE 325 MG TABLET PO SCH (09:34)
[2019-05-28] MEDS: AMOXICILLIN/CLAV 875 MG TABLET PO SCH ×2 (09:34→22:24)
[2019-05-28] MEDS: GABAPENTIN 300 MG CAPSULE PO SCH ×2 (09:34→22:24)
[2019-05-28] MEDS: PANTOPRAZOLE 40 MG TABLET PO SCH (09:34)
[2019-05-28] MEDS: LORATADINE 10 MG TABLET PO SCH (09:34)
[2019-05-28] MEDS: CYPROHEPTADINE 4 MG TABLET PO SCH ×3 (09:34→18:05)
[2019-05-28] MEDS: metroNIDAZOLE 500 MG TABLET PO SCH ×3 (09:34→22:24)
[2019-05-28] MEDS: POTASSIUM CHLORIDE 10 MEQ TABLET PO SCH (09:34)
[2019-05-28] MEDS: MAGNESIUM OXIDE 400 MG TABLET PO SCH (09:35)
[2019-05-28] MEDS: FLUTICASONE/SALMETEROL 100-50 DISKUS 14 DOSE INH SCH (09:35)
[2019-05-28] MEDS: FEBUXOSTAT 80 MG TABLET PO SCH (09:35)
[2019-05-28] MEDS: CYCLOBENZAPRINE 10 MG TABLET PO SCH ×3 (09:35→22:24)
[2019-05-28] MEDS: POLYETHYLENE GLYCOL POWDER 17 GM PACK PO SCH ×2 (09:35→22:26)
[2019-05-28] MEDS: FAMOTIDINE 20 MG/2 ML VIAL IV SCH ×2 (09:36→22:26)
[2019-05-28] MEDS: INSULIN LISPRO 100 UNIT/ML SUBCUT SCH ×4 (09:36→22:24)
[2019-05-28] MEDS: LISINOPRIL 10 MG TABLET PO SCH (09:39)
[2019-05-28] MEDS: TRAVOPROST 0.004% OPH SOLN 2.5 ML BOTTLE BOTH EYES SCH (22:22)
[2019-05-28] MEDS: SERTRALINE 25 MG TABLET PO SCH (22:23)
[2019-05-28] MEDS: traZODone 50 MG TABLET PO PRN (22:23)
[2019-05-28] MEDS: CETIRIZINE 10 MG TABLET PO SCH (22:23)
[2019-05-28] MEDS: ASPIRIN EC 81 MG TABLET PO SCH (22:24)
[2019-05-28] MEDS: diphenhydrAMINE CAP 25 MG CAPSULE PO SCH (22:24)
[2019-05-28] MEDS: INSULIN GLARGINE 100 UNIT/ML SUBCUT SCH (22:25)
[2019-05-28] MEDS: ENOXAPARIN 40 MG/0.4 ML SYRINGE SUBCUT SCH (22:25)
[2019-05-29] MEDS: IPRATROPIUM 500 MCG/2.5 ML NEB RESP TX SCH ×4 (07:12→19:53)
[2019-05-29] MEDS: POLYETHYLENE GLYCOL POWDER 17 GM PACK PO SCH ×2 (09:17→22:08)
[2019-05-29] MEDS: POTASSIUM CHLORIDE 10 MEQ TABLET PO SCH (09:17)
[2019-05-29] MEDS: FEBUXOSTAT 80 MG TABLET PO SCH (09:17)
[2019-05-29] MEDS: FAMOTIDINE 20 MG/2 ML VIAL IV SCH ×2 (09:17→22:08)
[2019-05-29] MEDS: metroNIDAZOLE 500 MG TABLET PO SCH ×3 (09:18→22:07)
[2019-05-29] MEDS: MAGNESIUM OXIDE 400 MG TABLET PO SCH (09:18)
[2019-05-29] MEDS: AMOXICILLIN/CLAV 875 MG TABLET PO SCH ×2 (09:19→22:07)
[2019-05-29] MEDS: PANTOPRAZOLE 40 MG TABLET PO SCH (09:19)
[2019-05-29] MEDS: METOCLOPRAMIDE 5 MG TABLET PO SCH ×4 (09:19→22:06)
[2019-05-29] MEDS: FERROUS SULFATE 325 MG TABLET PO SCH (09:19)
[2019-05-29] MEDS: GABAPENTIN 300 MG CAPSULE PO SCH ×2 (09:19→22:07)
[2019-05-29] MEDS: CYPROHEPTADINE 4 MG TABLET PO SCH ×3 (09:19→17:16)
[2019-05-29] MEDS: CYCLOBENZAPRINE 10 MG TABLET PO SCH ×3 (09:19→22:06)
[2019-05-29] MEDS: LORATADINE 10 MG TABLET PO SCH (09:19)
[2019-05-29] MEDS: FLUTICASONE/SALMETEROL 100-50 DISKUS 14 DOSE INH SCH (09:23)
[2019-05-29] MEDS: INSULIN LISPRO 100 UNIT/ML SUBCUT SCH ×4 (09:26→22:18)
[2019-05-29] MEDS: LISINOPRIL 10 MG TABLET PO SCH (10:25)
[2019-05-29] MEDS: DEXTROSE 5% NACL 0.45% 1,000 ML IV SCH ×3 (12:17→22:00)
[2019-05-29] MEDS: TRAVOPROST 0.004% OPH SOLN 2.5 ML BOTTLE BOTH EYES SCH (22:00)
[2019-05-29] MEDS: CETIRIZINE 10 MG TABLET PO SCH (22:06)
[2019-05-29] MEDS: diphenhydrAMINE CAP 25 MG CAPSULE PO SCH (22:06)
[2019-05-29] MEDS: ENOXAPARIN 40 MG/0.4 ML SYRINGE SUBCUT SCH (22:07)
[2019-05-29] MEDS: ASPIRIN EC 81 MG TABLET PO SCH (22:07)
[2019-05-29] MEDS: SERTRALINE 25 MG TABLET PO SCH (22:09)
[2019-05-29] MEDS: INSULIN GLARGINE 100 UNIT/ML SUBCUT SCH (22:17)
[2019-05-30] MEDS: IPRATROPIUM 500 MCG/2.5 ML NEB RESP TX SCH ×4 (07:00→14:23)
[2019-05-30] MEDS: INSULIN LISPRO 100 UNIT/ML SUBCUT SCH ×2 (09:10→11:48)
[2019-05-30] MEDS: CYPROHEPTADINE 4 MG TABLET PO SCH ×2 (09:10→11:49)
[2019-05-30] MEDS: METOCLOPRAMIDE 5 MG TABLET PO SCH ×2 (09:10→11:49)
[2019-05-30] MEDS: metroNIDAZOLE 500 MG TABLET PO SCH ×2 (09:11→15:19)
[2019-05-30] MEDS: AMOXICILLIN/CLAV 875 MG TABLET PO SCH (09:11)
[2019-05-30] MEDS: FERROUS SULFATE 325 MG TABLET PO SCH (09:11)
[2019-05-30] MEDS: POLYETHYLENE GLYCOL POWDER 17 GM PACK PO SCH (09:11)
[2019-05-30] MEDS: CYCLOBENZAPRINE 10 MG TABLET PO SCH ×2 (09:11→15:19)
[2019-05-30] MEDS: POTASSIUM CHLORIDE 10 MEQ TABLET PO SCH (09:11)
[2019-05-30] MEDS: MAGNESIUM OXIDE 400 MG TABLET PO SCH (09:11)
[2019-05-30] MEDS: FLUTICASONE/SALMETEROL 100-50 DISKUS 14 DOSE INH SCH (09:11)
[2019-05-30] MEDS: FEBUXOSTAT 80 MG TABLET PO SCH (09:12)
[2019-05-30] MEDS: LISINOPRIL 10 MG TABLET PO SCH (09:12)
[2019-05-30] MEDS: GABAPENTIN 300 MG CAPSULE PO SCH (09:12)
[2019-05-30] MEDS: FAMOTIDINE 20 MG/2 ML VIAL IV SCH (09:12)
[2019-05-30] MEDS: PANTOPRAZOLE 40 MG TABLET PO SCH (09:12)
[2019-05-30] MEDS: LORATADINE 10 MG TABLET PO SCH (10:08)
[2019-05-30 11:47] VITALS: BP 130/61
== END 2019-05-30 16:30 | disposition swing bed (61) | DRG 378 ==
LOC: N.2E 14:24 → SUATTDRO 14:24
PROVIDERS: ADMIT Internal Medicine; ATTEND Internal Medicine

== ENCOUNTER 2022-03-21 21:07 | Observation (INO) ==
[2022-03-21 21:31] LABS: Basophils % 0.3 % (0.0-0.8); Eosinophils # 0.3 10*3/uL (0.0-0.87); Eosinophils % 2.9 % (0.00-10.9); Hematocrit 38.1 VOL% (35.7-47.0); Immature Granulocytes % 0.3 %; Immature Granulocytes Absolute 0.03 #; Lymphocytes # 1.8 10*3/uL (1.4-4.0); Lymphocytes % 16.2 % (21.3-54.2); Mean Corpuscular HGB Conc 34.1 GM/DL (32-36); Mean Corpuscular Volume 79.2 FL (87-102); Monocytes # 0.8 10*3/uL (0.11-0.8); Monocytes % 6.8 % (1.7-12.7); Neutrophils % 73.5 % (38.7-73.9); Platelet Count 282 T/CUMM (130-400); Red Blood Count 4.81 MC/CUMM (3.8-5.5); Red Cell Distribution Width 14.2 % (9.3-17.3); White Blood Count 11.1 T/CUMM (4-12)
[2022-03-21 21:52] LABS: Alanine Aminotransferase 17 U/L (13-56); Albumin 3.6 G/DL (3.4-5.0); Alkaline Phosphatase 94 U/L (45-117); Aspartate Amino Transferase 14 U/L (0-37); Bilirubin,Total < 0.39 MG/DL (0.20-1.00); Blood Urea Nitrogen 24 MG/DL (7-18); Calcium 9.1 MG/DL (8.5-10.1); Carbon Dioxide 27 MMOL/L (21-32); Chloride 106 MMOL/L (98-107); Glucose 206 MG/DL (74-106); Osmolality,Calculated 290.3 MOS/KG (273-304); Potassium 4.3 MMOL/L (3.5-5.1); Sodium 141 MMOL/L (136-145); Total Protein 7.2 G/DL (6.4-8.2)
[2022-03-21 22:53] LABS: PT Patient Result 10.9 SECS (10.5-12.0)
[2022-03-21] MEDS ORDERED: ONDANSETRON 4 MG/2 ML VIAL IV ONE (23:10)
[2022-03-21] MEDS ORDERED: MORPHINE 2 MG/1 ML SYRINGE IV STA (23:10)
[2022-03-21] MEDS ORDERED: MAGNESIUM SULF RIDER 1 GM/100 ML PREMIX IV STA (23:50)
[2022-03-22] MEDS ORDERED: MAGNESIUM SULF RIDER 2 GM/50 ML PREMIX IV ONE (00:16)
[2022-03-22] MEDS ORDERED: MAGNESIUM SULF RIDER 1 GM/25 ML PREMIX IV STA (00:26)
[2022-03-22] MEDS ORDERED: GLUCAGON 1 MG VIAL IM PRN (00:41)
[2022-03-22] MEDS ORDERED: DEXTROSE 50% 25 GM/50 ML VIAL IV PRN (00:41)
[2022-03-22] MEDS ORDERED: NITROGLYCERIN SL 0.4 MG TABLET SL PRN (00:53)
[2022-03-22] MEDS ORDERED: DEXTROSE 10% 250 ML BAG IV PRN (01:04)
[2022-03-22] MEDS ORDERED: ALBUTEROL 2.5 MG/3 ML NEB RESP TX PRN (01:04)
[2022-03-22 04:48] LABS: Basophils % 0.3 % (0.0-0.8); Eosinophils # 0.4 10*3/uL (0.0-0.87); Eosinophils % 3.9 % (0.00-10.9); Hematocrit 35.2 VOL% (35.7-47.0); Immature Granulocytes % 0.4 %; Immature Granulocytes Absolute 0.04 #; Lymphocytes # 1.8 10*3/uL (1.4-4.0); Lymphocytes % 18.8 % (21.3-54.2); Mean Corpuscular HGB Conc 34.1 GM/DL (32-36); Mean Platelet Volume 11.9 FL (9.6-12.0); Monocytes # 0.7 10*3/uL (0.11-0.8); Monocytes % 7.2 % (1.7-12.7); Neutrophils % 69.4 % (38.7-73.9); Platelet Count 258 T/CUMM (130-400); Red Cell Distribution Width 14.1 % (9.3-17.3); White Blood Count 9.5 T/CUMM (4-12)
[2022-03-22 05:17] LABS: Alanine Aminotransferase 14 U/L (13-56); Alkaline Phosphatase 85 U/L (45-117); Aspartate Amino Transferase 10 U/L (0-37); Bilirubin,Total < 0.39 MG/DL (0.20-1.00); Blood Urea Nitrogen 22 MG/DL (7-18); Calcium 9.1 MG/DL (8.5-10.1); Carbon Dioxide 28 MMOL/L (21-32); Chloride 107 MMOL/L (98-107); Glucose 168 MG/DL (74-106); Osmolality,Calculated 285.4 MOS/KG (273-304); Sodium 140 MMOL/L (136-145); Total Protein 6.7 G/DL (6.4-8.2)
[2022-03-22] MEDS: lisinopriL 10 MG TABLET PO SCH (08:57)
[2022-03-22] MEDS: POTASSIUM CHLORIDE 10 MEQ TABLET PO SCH (08:57)
[2022-03-22] MEDS: PANTOPRAZOLE 40 MG TABLET PO SCH (08:57)
[2022-03-22] MEDS: TRIAMTERENE/HCTZ 37.5-25 MG CAPSULE PO SCH (09:03)
[2022-03-22] MEDS ORDERED: CYCLOBENZAPRINE 10 MG TABLET PO SCH (21:00)
[2022-03-23 05:14] LABS: Basophils % 0.2 % (0.0-0.8); Eosinophils # 0.5 10*3/uL (0.0-0.87); Eosinophils % 5.6 % (0.00-10.9); Hematocrit 35.9 VOL% (35.7-47.0); Hemoglobin 12.1 GM/DL (12.0-16.0); Immature Granulocytes % 0.2 %; Immature Granulocytes Absolute 0.02 #; Lymphocytes # 1.7 10*3/uL (1.4-4.0); Lymphocytes % 20.5 % (21.3-54.2); Mean Corpuscular HGB Conc 33.7 GM/DL (32-36); Mean Corpuscular Volume 79.8 FL (87-102); Mean Platelet Volume 11.5 FL (9.6-12.0); Monocytes # 0.8 10*3/uL (0.11-0.8); Monocytes % 9.6 % (1.7-12.7); Neutrophils % 63.9 % (38.7-73.9); Platelet Count 237 T/CUMM (130-400); White Blood Count 8.1 T/CUMM (4-12)
[2022-03-23 05:39] LABS: Calcium 8.9 MG/DL (8.5-10.1); Osmolality,Calculated 285.7 MOS/KG (273-304)
[2022-03-23] MEDS ORDERED: MAGNESIUM SULF RIDER 2 GM/50 ML PREMIX IV ONE (08:00)
[2022-03-23] MEDS: TRIAMTERENE/HCTZ 37.5-25 MG CAPSULE PO SCH (09:11)
[2022-03-23] MEDS: POTASSIUM CHLORIDE 10 MEQ TABLET PO SCH (09:11)
[2022-03-23] MEDS: PANTOPRAZOLE 40 MG TABLET PO SCH (09:11)
[2022-03-23] MEDS: lisinopriL 10 MG TABLET PO SCH (09:11)
[2022-03-23 12:19] VITALS: BP 153/68
== END 2022-03-23 13:03 | disposition home or self-care (01) ==
LOC: EDBD → EDUNIT# → N.EDINP 21:07 → N.ED 21:07 → SUATTDRO 03-22 00:41 → N.EDINP 03-22 02:24 → N.3E 03-22 02:34
PROVIDERS: ADMIT Family Medicine; ATTEND Hospitalist